=== PATIENT | female | born 1935 | race Caucasian/White ===

== ENCOUNTER 2020-07-14 10:48 | Outpatient (CLI) | payer MEDICARE, OTHER | END 2020-07-14 10:49 | disposition EMS.NT | LOC: EMS 10:48 | DX: Z03.89 Encounter for observation for other suspected diseases and conditions ruled out (principal) ==

== ENCOUNTER 2021-11-09 08:33 | Emergency (ER) | payer MEDICARE, OTHER ==
[2021-11-09] MEDS ORDERED: SODIUM CHLORIDE 0.9% 1,000 ML IV STA ×2 (08:50→10:21)
--- OUTSIDE RECORDS SUMMARY | 2021-11-09 08:50 | EXTERNAL MEDICAL SUMMARY RPT | Continuity of Care Document ---
:1935 Author Organization [facility] Address [address] [place] [address] Phone Allergies and Intolerances date description facility type (no date) [facility] (unknown) Encounters No information. Functional Status No information. Immunizations No information. Medications date description facility [id number] Omeprazole 20 MG Enteric Coated Capsul e [facility] Problems No information. Procedures date description facility + Diagnosis [facility] +0000 [facility] [id number] [facility] +0000 [facility] Results/Labs test date author facility value unit interpret ation Result panel 1 (unknown) (no (unknown) (unknown) (no value) (units (unk nown) date) unknown) (unknown) (no (unknown) (unknown) (no value) (units (unk nown) date) unknown) (unknown) (no (unknown) (unknown) (no value) (units (unk nown) date) unknown) (unknown) (no (unknown) (unknown) 09/16/21 (units (unkno wn) date) unknown) (unknown) (no (unknown) (unknown) 13:58 (units (unkno wn) date) unknown) (unknown) (no (unknown) (unknown) [place] [address] (unit s (unknown) date) unknown) (unknown) (no (unknown) (unknown) BLISTERS (FROM TEGADERM ( units (unknown) date) MESH) unknown) (unknown) (no (unknown) (unknown) Draft (units (unkno wn) date) unknown) (unknown) (no (unknown) (unknown) Family Practice Office (u nits (unknown) date) Visit unknown) (unknown) (no (unknown) (unknown) [facility] (units (unknown) date) unknown) (unknown) (no (unknown) (unknown) Heart attack (units (u nknown) date) unknown) (unknown) (no (unknown) (unknown) LIGHTHEADED (units (un known) date) unknown) (unknown) (no (unknown) (unknown) Melanoma (units (unkno wn) date) unknown) (unknown) (no (unknown) (unknown) Pulmonary embolism (units (unknown) date) unknown) (unknown) (no (unknown) (unknown) (no value) (units (unk nown) date) unknown) (unknown) (no (unknown) (unknown) () (units (unk nown) date) unknown) (unknown) (no (unknown) (unknown) 09/16/21 (units (unkno wn) date) unknown) (unknown) (no (unknown) (unknown) [id number] (units (unkno wn) date) unknown) (unknown) (no (unknown) (unknown) Abnormal LFTs (units ( unknown) date) unknown) (unknown) (no (unknown) (unknown) Age/Sex: 86 / F Date of (units (unknown) date) Service: unknown) (unknown) (no (unknown) (unknown) Allergies (units (unkn own) date) unknown) (unknown) (no (unknown) (unknown) Anesthesia (units (unk nown) date) unknown) (unknown) (no (unknown) (unknown) Ankle pain, left (2009) ( units (unknown) date) unknown) (unknown) (no (unknown) (unknown) Anxiety (units (unkno wn) date) unknown) (unknown) (no (unknown) (unknown) Attending Dr: Sosa Calderón (uni ts (unknown) date) Sebastian CAMPBELL unknown) (unknown) (no (unknown) (unknown) BMI 39.6 (units (un known) date) unknown) (unknown) (no (unknown) (unknown) BP 136/84 (units (u nknown) date) unknown) (unknown) (no (unknown) (unknown) Bipolar disorder (units (unknown) date) unknown) (unknown) (no (unknown) (unknown) Blood Pressure Location ( units (unknown) date) Lt brachial unknown) (unknown) (no (unknown) (unknown) Bronchitis (units (unk nown) date) unknown) (unknown) (no (unknown) (unknown) Cataract (09/2013) (units (unknown) date) unknown) (unknown) (no (unknown) (unknown) Chicken pox (units (un known) date) unknown) (unknown) (no (unknown) (unknown) Chronic left shoulder pain (units (unknown) date) (06/27/17) unknown) (unknown) (no (unknown) (unknown) Chronic lumbar (units (unknown) date) radiculopathy (02/26/14) unkno wn) (unknown) (no (unknown) (unknown) : 1935 (units (unknown) date) Acct:[id number] unknown) (unknown) (no (unknown) (unknown) Daughter Depression (un its (unknown) date) unknown) (unknown) (no (unknown) (unknown) Dept at . (u nits (unknown) date) unknown) (unknown) (no (unknown) (unknown) Documented By: (units (unknown) date) Sosa Cortes MD unknown) 09/16/21 1358 (unknown) (no (unknown) (unknown) Dysphagia, pharyngeal (un its (unknown) date) phase unknown) (unknown) (no (unknown) (unknown) Episodic mood disorder (u nits (unknown) date) (03/08/17) unknown) (unknown) (no (unknown) (unknown) Essential tremor (units (unknown) date) (11/19/14) unknown) (unknown) (no (unknown) (unknown) Family History (Reviewed (units (unknown) date) 01/09/21 @ 17:39 by Nadine un known) JULIO Shelby) (unknown) (no (unknown) (unknown) Father Heart (units (unknown) date) disease unknown) (unknown) (no (unknown) (unknown) Foot pain (units (unkn own) date) unknown) (unknown) (no (unknown) (unknown) Foot pain, left (2009) (u nits (unknown) date) unknown) (unknown) (no (unknown) (unknown) GERD (gastroesophageal (u nits (unknown) date) reflux disease) unknown) (unknown) (no (unknown) (unknown) Grandfather (u nits (unknown) date) Dementia unknown) (unknown) (no (unknown) (unknown) Grandfather (u nits (unknown) date) Pneumonia unknown) (unknown) (no (unknown) (unknown) Grandmother (u nits (unknown) date) No problems noted. unknown) (unknown) (no (unknown) (unknown) Grandmother (u nits (unknown) date) Heart disease unknown) (unknown) (no (unknown) (unknown) H/O abdominal surgery (un its (unknown) date) (09/2006) unknown) (unknown) (no (unknown) (unknown) Height 5 ft 7.5 in (un its (unknown) date) unknown) (unknown) (no (unknown) (unknown) History of (units (unk nown) date) esophagogastroduodenoscopy unk nown) (EGD) (-09/2015) (unknown) (no (unknown) (unknown) History of hip replacement (units (unknown) date) (1996) unknown) (unknown) (no (unknown) (unknown) History of hip replacement (units (unknown) date) (2001) unknown) (unknown) (no (unknown) (unknown) History of partial knee ( units (unknown) date) replacement (2003) unknown) (unknown) (no (unknown) (unknown) History of partial knee ( units (unknown) date) replacement (2007) unknown) (unknown) (no (unknown) (unknown) History of vaginal surgery (units (unknown) date) () unknown) (unknown) (no (unknown) (unknown) Hyperlipidemia (units (unknown) date) unknown) (unknown) (no (unknown) (unknown) Hypothyroidism (units (unknown) date) unknown) (unknown) (no (unknown) (unknown) Intake (units (unkno wn) date) unknown) (unknown) (no (unknown) (unknown) Internal hemorrhoids (uni ts (unknown) date) () unknown) (unknown) (no (unknown) (unknown) Last Menstural Cycle + (u nits (unknown) date) Details unknown) (unknown) (no (unknown) (unknown) Left upper quadrant pain (units (unknown) date) unknown) (unknown) (no (unknown) (unknown) Loc: [facility] (units (unkno wn) date) unknown) (unknown) (no (unknown) (unknown) Lumbar spinal stenosis (u nits (unknown) date) unknown) (unknown) (no (unknown) (unknown) Medical History (Updated (units (unknown) date) 05/19/21 @ 10:12 by Cara alvarez known) DO Júnior) (unknown) (no (unknown) (unknown) Mother (units (unknown) date) Dementia unknown) (unknown) (no (unknown) (unknown) Mumps (1967) (units (u nknown) date) unknown) (unknown) (no (unknown) (unknown) Neuropathy (units (unk nown) date) unknown) (unknown) (no (unknown) (unknown) Obesity (BMI 30-39.9) (un its (unknown) date) unknown) (unknown) (no (unknown) (unknown) Other Menstrual Period: ( units (unknown) date) Surgical Menopause (at age unk nown) 32) (unknown) (no (unknown) (unknown) Oxygen Delivery Method (u nits (unknown) date) room air unknown) (unknown) (no (unknown) (unknown) PFSH (units (unkno wn) date) unknown) (unknown) (no (unknown) (unknown) Patient: Isaura Schafer ( units (unknown) date) MR#: [id number] unknown) (unknown) (no (unknown) (unknown) Position Sitting (unit s (unknown) date) unknown) (unknown) (no (unknown) (unknown) Pulmonary nodule less than (units (unknown) date) 6 mm in diameter with low unkn own) risk for malignant neoplasm (unknown) (no (unknown) (unknown) Pulse 91 H (units ( unknown) date) unknown) (unknown) (no (unknown) (unknown) Pulse Oximetry (%) 96 (units (unknown) date) unknown) (unknown) (no (unknown) (unknown) Pulse Source Monitor ( units (unknown) date) unknown) (unknown) (no (unknown) (unknown) Reason For Visit (units (unknown) date) unknown) (unknown) (no (unknown) (unknown) Relationship problem with (units (unknown) date) family member unknown) (unknown) (no (unknown) (unknown) Respiration 16 (units (unknown) date) unknown) (unknown) (no (unknown) (unknown) Restrictive lung disease (units (unknown) date) unknown) (unknown) (no (unknown) (unknown) Signed By: (units (unk nown) date) unknown) (unknown) (no (unknown) (unknown) Sister Cancer (units (unknown) date) unknown) (unknown) (no (unknown) (unknown) Smoking Status: Never (un its (unknown) date) smoker unknown) (unknown) (no (unknown) (unknown) Social History (units (unknown) date) unknown) (unknown) (no (unknown) (unknown) Soft tissue mass (units (unknown) date) unknown) (unknown) (no (unknown) (unknown) Status post hysterectomy (units (unknown) date) with oophorectomy (1970) unkno wn) (unknown) (no (unknown) (unknown) Stricture of esophagus (u nits (unknown) date) (01/09/15) unknown) (unknown) (no (unknown) (unknown) Surgical History (Reviewed (units (unknown) date) 01/09/21 @ 17:39 by Nadine un known) JULIO Shelby) (unknown) (no (unknown) (unknown) Temp 96.9 F L (units (unknown) date) unknown) (unknown) (no (unknown) (unknown) Temp Source Temporal ( units (unknown) date) Artery Scan unknown) (unknown) (no (unknown) (unknown) This note may have been ( units (unknown) date) all or partially generated unk nown) using voice recognition (unknown) (no (unknown) (unknown) Tinnitus (-2014) (units (unknown) date) unknown) (unknown) (no (unknown) (unknown) Tobacco + Substance Use ( units (unknown) date) unknown) (unknown) (no (unknown) (unknown) Tobacco Status (units (unknown) date) unknown) (unknown) (no (unknown) (unknown) Urge incontinence of urine (units (unknown) date) (11/14/14) unknown) (unknown) (no (unknown) (unknown) Urinary incontinence (uni ts (unknown) date) (2004) unknown) (unknown) (no (unknown) (unknown) Visit Reasons: (units (unknown) date) Consultation/ f/u chemo unknow n) *CALLED, NO MESSAGE* (unknown) (no (unknown) (unknown) Vitals (units (unkno wn) date) unknown) (unknown) (no (unknown) (unknown) Weight 257 lb (units (unknown) date) unknown) (unknown) (no (unknown) (unknown) alcohol intake: current ( units (unknown) date) unknown) (unknown) (no (unknown) (unknown) details: (un its (unknown) date) 01/22/2007 unknown) (unknown) (no (unknown) (unknown) digoxin [DIGOXIN] Allergy (units (unknown) date) (Mild, Verified 04/13/21 unkno wn) 15:08) (unknown) (no (unknown) (unknown) have occurred. If there (units (unknown) date) are any questions, please unkn own) contact the Medical Records (unknown) (no (unknown) (unknown) household members: none ( units (unknown) date) unknown) (unknown) (no (unknown) (unknown) housing: condominium (uni ts (unknown) date) unknown) (unknown) (no (unknown) (unknown) latex [LATEX] Allergy (un its (unknown) date) (Mild, Verified 04/13/21 unkno wn) 15:08) (unknown) (no (unknown) (unknown) lives independently: Yes (units (unknown) date) unknown) (unknown) (no (unknown) (unknown) marital status: ( units (unknown) date) unknown) (unknown) (no (unknown) (unknown) may occur. Occasional (u nits (unknown) date) wrong-word or 'sound-alike' un known) substitutions may have (unknown) (no (unknown) (unknown) number of children: 1 (un its (unknown) date) unknown) (unknown) (no (unknown) (unknown) occupational status: (uni ts (unknown) date) previously employed unknown) (unknown) (no (unknown) (unknown) occurred due to the (unit s (unknown) date) inherent limitations of unknow n) voice recognition software. Please (unknown) (no (unknown) (unknown) pets and animals: No (uni ts (unknown) date) unknown) (unknown) (no (unknown) (unknown) read the note carefully ( units (unknown) date) and recognize, using unknown) context, where these substitutions (unknown) (no (unknown) (unknown) silver Allergy (Mild, (un its (unknown) date) Verified 04/13/21 15:08) unkno wn) (unknown) (no (unknown) (unknown) software. 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 (unknown) (no (unknown) (unknown) substance use type: does (units (unknown) date) not use unknown) Result panel 2 (unknown) (no (unknown) (unknown) (no value) (units (unk nown) date) unknown) (unknown) (no (unknown) (unknown) (no value) (units (unk nown) date) unknown) (unknown) (no (unknown) (unknown) (no value) (units (unk nown) date) unknown) (unknown) (no (unknown) (unknown) 09/16/21 (units (unkno wn) date) unknown) (unknown) (no (unknown) (unknown) 13:58 (units (unkno wn) date) unknown) (unknown) (no (unknown) (unknown) [place] [id number] (unit s (unknown) date) unknown) (unknown) (no (unknown) (unknown) BLISTERS (FROM TEGADERM ( units (unknown) date) MESH) unknown) (unknown) (no (unknown) (unknown) Draft (units (unkno wn) date) unknown) (unknown) (no (unknown) (unknown) Family Practice Office (u nits (unknown) date) Visit unknown) (unknown) (no (unknown) (unknown) [facility] (units (unknown) date) unknown) (unknown) (no (unknown) (unknown) Heart attack (units (u nknown) date) unknown) (unknown) (no (unknown) (unknown) LIGHTHEADED (units (un known) date) unknown) (unknown) (no (unknown) (unknown) Melanoma (units (unkno wn) date) unknown) (unknown) (no (unknown) (unknown) Pulmonary embolism (units (unknown) date) unknown) (unknown) (no (unknown) (unknown) (no value) (units (unk nown) date) unknown) (unknown) (no (unknown) (unknown) () (units (unk nown) date) unknown) (unknown) (no (unknown) (unknown) 09/16/21 (units (unkno wn) date) unknown) (unknown) (no (unknown) (unknown) [id number] (units (unkno wn) date) unknown) (unknown) (no (unknown) (unknown) 86 yo female presents (un its (unknown) date) today for follow up unknown) radiation treatment provided at (unknown) (no (unknown) (unknown) Abnormal LFTs (units ( unknown) date) unknown) (unknown) (no (unknown) (unknown) Accompanied by: Self / (u nits (unknown) date) Same As Patient unknown) (unknown) (no (unknown) (unknown) Age/Sex: 86 / F Date of (units (unknown) date) Service: unknown) (unknown) (no (unknown) (unknown) Allergies (units (unkn own) date) unknown) (unknown) (no (unknown) (unknown) Anesthesia (units (unk nown) date) unknown) (unknown) (no (unknown) (unknown) Ankle pain, left (2009) ( units (unknown) date) unknown) (unknown) (no (unknown) (unknown) Anxiety (units (unkno wn) date) unknown) (unknown) (no (unknown) (unknown) Attending Dr: Sosa Calderón (uni ts (unknown) date) Sebastian CAMPBELL unknown) (unknown) (no (unknown) (unknown) BMI 39.6 (units (un known) date) unknown) (unknown) (no (unknown) (unknown) BP 136/84 (units (u nknown) date) unknown) (unknown) (no (unknown) (unknown) Bipolar disorder (units (unknown) date) unknown) (unknown) (no (unknown) (unknown) Blood Pressure Location ( units (unknown) date) Lt brachial unknown) (unknown) (no (unknown) (unknown) Bronchitis (units (unk nown) date) unknown) (unknown) (no (unknown) (unknown) Cataract (09/2013) (units (unknown) date) unknown) (unknown) (no (unknown) (unknown) Chicken pox (units (un known) date) unknown) (unknown) (no (unknown) (unknown) Chronic left shoulder pain (units (unknown) date) (06/27/17) unknown) (unknown) (no (unknown) (unknown) Chronic lumbar (units (unknown) date) radiculopathy (02/26/14) unkno wn) (unknown) (no (unknown) (unknown) : 1935 (units (unknown) date) Acct:[id number] unknown) (unknown) (no (unknown) (unknown) Daughter Depression (un its (unknown) date) unknown) (unknown) (no (unknown) (unknown) Dept at . (u nits (unknown) date) unknown) (unknown) (no (unknown) (unknown) Documented By: (units (unknown) date) Sosa Cortes MD unknown) 09/16/21 1358 (unknown) (no (unknown) (unknown) Dysphagia, pharyngeal (un its (unknown) date) phase unknown) (unknown) (no (unknown) (unknown) Episodic mood disorder (u nits (unknown) date) (03/08/17) unknown) (unknown) (no (unknown) (unknown) Essential tremor (units (unknown) date) (11/19/14) unknown) (unknown) (no (unknown) (unknown) Family History (Reviewed (units (unknown) date) 01/09/21 @ 17:39 by Nadine un known) JULIO Shelby) (unknown) (no (unknown) (unknown) Father Heart (units (unknown) date) disease unknown) (unknown) (no (unknown) (unknown) Foot pain (units (unkn own) date) unknown) (unknown) (no (unknown) (unknown) Foot pain, left (2009) (u nits (unknown) date) unknown) (unknown) (no (unknown) (unknown) GERD (gastroesophageal (u nits (unknown) date) reflux disease) unknown) (unknown) (no (unknown) (unknown) Grandfather (u nits (unknown) date) Dementia unknown) (unknown) (no (unknown) (unknown) Grandfather (u nits (unknown) date) Pneumonia unknown) (unknown) (no (unknown) (unknown) Grandmother (u nits (unknown) date) No problems noted. unknown) (unknown) (no (unknown) (unknown) Grandmother (u nits (unknown) date) Heart disease unknown) (unknown) (no (unknown) (unknown) H/O abdominal surgery (un its (unknown) date) (09/2006) unknown) (unknown) (no (unknown) (unknown) Height 5 ft 7.5 in (un its (unknown) date) unknown) (unknown) (no (unknown) (unknown) History of (units (unk nown) date) esophagogastroduodenoscopy unk nown) (EGD) (-09/2015) (unknown) (no (unknown) (unknown) History of hip replacement (units (unknown) date) (1996) unknown) (unknown) (no (unknown) (unknown) History of hip replacement (units (unknown) date) (2001) unknown) (unknown) (no (unknown) (unknown) History of partial knee ( units (unknown) date) replacement (2003) unknown) (unknown) (no (unknown) (unknown) History of partial knee ( units (unknown) date) replacement (2007) unknown) (unknown) (no (unknown) (unknown) History of vaginal surgery (units (unknown) date) () unknown) (unknown) (no (unknown) (unknown) Hyperlipidemia (units (unknown) date) unknown) (unknown) (no (unknown) (unknown) Hypothyroidism (units (unknown) date) unknown) (unknown) (no (unknown) (unknown) Intake (units (unkno wn) date) unknown) (unknown) (no (unknown) (unknown) Intake Note: (units (u nknown) date) unknown) (unknown) (no (unknown) (unknown) Intake performed by: (uni ts (unknown) date) Sade Avila unknown) (unknown) (no (unknown) (unknown) 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- Clincial Staff (u nits (unknown) date) unknown) (unknown) (no (unknown) (unknown) Internal hemorrhoids (uni ts (unknown) date) () unknown) (unknown) (no (unknown) (unknown) Last Menstural Cycle + (u nits (unknown) date) Details unknown) (unknown) (no (unknown) (unknown) Left upper quadrant pain (units (unknown) date) unknown) (unknown) (no (unknown) (unknown) Loc: [facility] (units (unkno wn) date) unknown) (unknown) (no (unknown) (unknown) Lumbar spinal stenosis (u nits (unknown) date) unknown) (unknown) (no (unknown) (unknown) Medical History (Updated (units (unknown) date) 05/19/21 @ 10:12 by Cara un known) DO Júnior) (unknown) (no (unknown) (unknown) Mother (units (unknown) date) Dementia unknown) (unknown) (no (unknown) (unknown) Mumps (1967) (units (u nknown) date) unknown) (unknown) (no (unknown) (unknown) Neuropathy (units (unk nown) date) unknown) (unknown) (no (unknown) (unknown) Obesity (BMI 30-39.9) (un its (unknown) date) unknown) (unknown) (no (unknown) (unknown) Other Menstrual Period: ( units (unknown) date) Surgical Menopause (at age unk nown) 32) (unknown) (no (unknown) (unknown) Oxygen Delivery Method (u nits (unknown) date) room air unknown) (unknown) (no (unknown) (unknown) PFSH (units (unkno wn) date) unknown) (unknown) (no (unknown) (unknown) Patient: Isaura Schafer ( units (unknown) date) MR#: [id number] unknown) (unknown) (no (unknown) (unknown) Position Sitting (unit s (unknown) date) unknown) (unknown) (no (unknown) (unknown) Pulmonary nodule less than (units (unknown) date) 6 mm in diameter with low unkn own) risk for malignant neoplasm (unknown) (no (unknown) (unknown) Pulse 91 H (units ( unknown) date) unknown) (unknown) (no (unknown) (unknown) Pulse Oximetry (%) 96 (units (unknown) date) unknown) (unknown) (no (unknown) (unknown) Pulse Source Monitor ( units (unknown) date) unknown) (unknown) (no (unknown) (unknown) Reason For Visit (units (unknown) date) unknown) (unknown) (no (unknown) (unknown) Relationship problem with (units (unknown) date) family member unknown) (unknown) (no (unknown) (unknown) Respiration 16 (units (unknown) date) unknown) (unknown) (no (unknown) (unknown) Restrictive lung disease (units (unknown) date) unknown) (unknown) (no (unknown) (unknown) [place] [facility] (unit s (unknown) date) [facility]. unknown) (unknown) (no (unknown) (unknown) Signed By: (units (unk nown) date) unknown) (unknown) (no (unknown) (unknown) Sister Cancer (units (unknown) date) unknown) (unknown) (no (unknown) (unknown) Smoking Status: Never (un its (unknown) date) smoker unknown) (unknown) (no (unknown) (unknown) Social History (units (unknown) date) unknown) (unknown) (no (unknown) (unknown) Soft tissue mass (units (unknown) date) unknown) (unknown) (no (unknown) (unknown) Status post hysterectomy (units (unknown) date) with oophorectomy (1970) unkno wn) (unknown) (no (unknown) (unknown) Stricture of esophagus (u nits (unknown) date) (01/09/15) unknown) (unknown) (no (unknown) (unknown) Surgical History (Reviewed (units (unknown) date) 01/09/21 @ 17:39 by Nadine un known) JULIO Shelby) (unknown) (no (unknown) (unknown) Temp 96.9 F L (units (unknown) date) unknown) (unknown) (no (unknown) (unknown) Temp Source Temporal ( units (unknown) date) Artery Scan unknown) (unknown) (no (unknown) (unknown) This note may have been ( units (unknown) date) all or partially generated unk nown) using voice recognition (unknown) (no (unknown) (unknown) Tinnitus (-2015) (units (unknown) date) unknown) (unknown) (no (unknown) (unknown) Tobacco + Substance Use ( units (unknown) date) unknown) (unknown) (no (unknown) (unknown) Tobacco Status (units (unknown) date) unknown) (unknown) (no (unknown) (unknown) Urge incontinence of urine (units (unknown) date) (11/14/14) unknown) (unknown) (no (unknown) (unknown) Urinary incontinence (uni ts (unknown) date) (2004) unknown) (unknown) (no (unknown) (unknown) Visit Reasons: (units (unknown) date) Consultation/ f/u chemo unknow n) *CALLED, NO MESSAGE* (unknown) (no (unknown) (unknown) Vitals (units (unkno wn) date) unknown) (unknown) (no (unknown) (unknown) Weight 257 lb (units (unknown) date) unknown) (unknown) (no (unknown) (unknown) Would like to discuss (un its (unknown) date) restarting gabapentin for unkn own) right forearm pain. (unknown) (no (unknown) (unknown) alcohol intake: current ( units (unknown) date) unknown) (unknown) (no (unknown) (unknown) details: (un its (unknown) date) 01/22/2007 unknown) (unknown) (no (unknown) (unknown) digoxin [DIGOXIN] Allergy (units (unknown) date) (Mild, Verified 04/13/21 unkno wn) 15:08) (unknown) (no (unknown) (unknown) have occurred. If there (units (unknown) date) are any questions, please unkn own) contact the Medical Records (unknown) (no (unknown) (unknown) household members: none ( units (unknown) date) unknown) (unknown) (no (unknown) (unknown) housing: condominium (uni ts (unknown) date) unknown) (unknown) (no (unknown) (unknown) latex [LATEX] Allergy (un its (unknown) date) (Mild, Verified 04/13/21 unkno wn) 15:08) (unknown) (no (unknown) (unknown) lives independently: Yes (units (unknown) date) unknown) (unknown) (no (unknown) (unknown) marital status: ( units (unknown) date) unknown) (unknown) (no (unknown) (unknown) may occur. Occasional (u nits (unknown) date) wrong-word or 'sound-alike' un known) substitutions may have (unknown) (no (unknown) (unknown) number of children: 1 (un its (unknown) date) unknown) (unknown) (no (unknown) (unknown) occupational status: (uni ts (unknown) date) previously employed unknown) (unknown) (no (unknown) (unknown) occurred due to the (unit s (unknown) date) inherent limitations of unknow n) voice recognition software. Please (unknown) (no (unknown) (unknown) pets and animals: No (uni ts (unknown) date) unknown) (unknown) (no (unknown) (unknown) read the note carefully ( units (unknown) date) and recognize, using unknown) context, where these substitutions (unknown) (no (unknown) (unknown) silver Allergy (Mild, (un its (unknown) date) Verified 04/13/21 15:08) unkno wn) (unknown) (no (unknown) (unknown) software. 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 (unknown) (no (unknown) (unknown) substance use type: does (units (unknown) date) not use unknown) Result panel 3 (unknown) (no (unknown) (unknown) (no value) (units (unk nown) date) unknown) (unknown) (no (unknown) (unknown) (no value) (units (unk nown) date) unknown) (unknown) (no (unknown) (unknown) (no value) (units (unk nown) date) unknown) (unknown) (no (unknown) (unknown) 09/16/21 (units (unkno wn) date) unknown) (unknown) (no (unknown) (unknown) 13:58 (units (unkno wn) date) unknown) (unknown) (no (unknown) (unknown) [place] [id number] (unit s (unknown) date) unknown) (unknown) (no (unknown) (unknown) BLISTERS (FROM TEGADERM ( units (unknown) date) MESH) unknown) (unknown) (no (unknown) (unknown) Draft (units (unkno wn) date) unknown) (unknown) (no (unknown) (unknown) Family Practice Office (u nits (unknown) date) Visit unknown) (unknown) (no (unknown) (unknown) [facility] (units (unknown) date) unknown) (unknown) (no (unknown) (unknown) Heart attack (units (u nknown) date) unknown) (unknown) (no (unknown) (unknown) LIGHTHEADED (units (un known) date) unknown) (unknown) (no (unknown) (unknown) Melanoma (units (unkno wn) date) unknown) (unknown) (no (unknown) (unknown) Pulmonary embolism (units (unknown) date) unknown) (unknown) (no (unknown) (unknown) (no value) (units (unk nown) date) unknown) (unknown) (no (unknown) (unknown) () (units (unk nown) date) unknown) (unknown) (no (unknown) (unknown) 09/16/21 (units (unkno wn) date) unknown) (unknown) (no (unknown) (unknown) [id number] (units (unkno wn) date) unknown) (unknown) (no (unknown) (unknown) 08/17 --medial aspect of R (units (unknown) date) forearm has a bruising, ? unkn own) related to pushing up from (unknown) (no (unknown) (unknown) 86 yo female presents (un its (unknown) date) today for follow up unknown) radiation treatment provided at (unknown) (no (unknown) (unknown) Abnormal LFTs (units ( unknown) date) unknown) (unknown) (no (unknown) (unknown) Accompanied by: Self / (u nits (unknown) date) Same As Patient unknown) (unknown) (no (unknown) (unknown) Age/Sex: 86 / F Date of (units (unknown) date) Service: unknown) (unknown) (no (unknown) (unknown) Allergies (units (unkn own) date) unknown) (unknown) (no (unknown) (unknown) Anesthesia (units (unk nown) date) unknown) (unknown) (no (unknown) (unknown) Ankle pain, left (2009) ( units (unknown) date) unknown) (unknown) (no (unknown) (unknown) Anxiety (units (unkno wn) date) unknown) (unknown) (no (unknown) (unknown) Attending Dr: Sosa Calderón (uni ts (unknown) date) Sebastian CAMPBELL unknown) (unknown) (no (unknown) (unknown) BMI 39.6 (units (un known) date) unknown) (unknown) (no (unknown) (unknown) BP 136/84 (units (u nknown) date) unknown) (unknown) (no (unknown) (unknown) Bipolar disorder (units (unknown) date) unknown) (unknown) (no (unknown) (unknown) Blood Pressure Location ( units (unknown) date) Lt brachial unknown) (unknown) (no (unknown) (unknown) Bronchitis (units (unk nown) date) unknown) (unknown) (no (unknown) (unknown) Cataract (09/2013) (units (unknown) date) unknown) (unknown) (no (unknown) (unknown) Chicken pox (units (un known) date) unknown) (unknown) (no (unknown) (unknown) Chronic left shoulder pain (units (unknown) date) (06/27/17) unknown) (unknown) (no (unknown) (unknown) Chronic lumbar (units (unknown) date) radiculopathy (02/26/14) unkno wn) (unknown) (no (unknown) (unknown) : 1935 (units (unknown) date) Acct:[id number] unknown) (unknown) (no (unknown) (unknown) Daughter Depression (un its (unknown) date) unknown) (unknown) (no (unknown) (unknown) Dept at . (u nits (unknown) date) unknown) (unknown) (no (unknown) (unknown) Details: (units (unkno wn) date) unknown) (unknown) (no (unknown) (unknown) Documented By: (units (unknown) date) Sosa Cortes MD unknown) 09/16/21 1358 (unknown) (no (unknown) (unknown) Dysphagia, pharyngeal (un its (unknown) date) phase unknown) (unknown) (no (unknown) (unknown) Episodic mood disorder (u nits (unknown) date) (03/08/17) unknown) (unknown) (no (unknown) (unknown) Essential tremor (units (unknown) date) (11/19/14) unknown) (unknown) (no (unknown) (unknown) Family History (Reviewed (units (unknown) date) 01/09/21 @ 17:39 by Nadine un known) JULIO Shelby) (unknown) (no (unknown) (unknown) Father Heart (units (unknown) date) disease unknown) (unknown) (no (unknown) (unknown) Foot pain (units (unkn own) date) unknown) (unknown) (no (unknown) (unknown) Foot pain, left (2009) (u nits (unknown) date) unknown) (unknown) (no (unknown) (unknown) GERD (gastroesophageal (u nits (unknown) date) reflux disease) unknown) (unknown) (no (unknown) (unknown) Grandfather (u nits (unknown) date) Dementia unknown) (unknown) (no (unknown) (unknown) Grandfather (u nits (unknown) date) Pneumonia unknown) (unknown) (no (unknown) (unknown) Grandmother (u nits (unknown) date) No problems noted. unknown) (unknown) (no (unknown) (unknown) Grandmother (u nits (unknown) date) Heart disease unknown) (unknown) (no (unknown) (unknown) H/O abdominal surgery (un its (unknown) date) (09/2006) unknown) (unknown) (no (unknown) (unknown) HPI (units (unkno wn) date) unknown) (unknown) (no (unknown) (unknown) Height 5 ft 7.5 in (un its (unknown) date) unknown) (unknown) (no (unknown) (unknown) History of (units (unk nown) date) esophagogastroduodenoscopy unk nown) (EGD) (-09/2015) (unknown) (no (unknown) (unknown) History of hip replacement (units (unknown) date) (1996) unknown) (unknown) (no (unknown) (unknown) History of hip replacement (units (unknown) date) (2001) unknown) (unknown) (no (unknown) (unknown) History of partial knee ( units (unknown) date) replacement (2004) unknown) (unknown) (no (unknown) (unknown) History of partial knee ( units (unknown) date) replacement (2007) unknown) (unknown) (no (unknown) (unknown) History of vaginal surgery (units (unknown) date) (-2008) unknown) (unknown) (no (unknown) (unknown) Hyperlipidemia (units (unknown) date) unknown) (unknown) (no (unknown) (unknown) Hypothyroidism (units (unknown) date) unknown) (unknown) (no (unknown) (unknown) Intake (units (unkno wn) date) unknown) (unknown) (no (unknown) (unknown) Intake Note: (units (u nknown) date) unknown) (unknown) (no (unknown) (unknown) Intake performed by: (uni ts (unknown) date) Sade Avila unknown) (unknown) (no (unknown) (unknown) Intake- Clincial Staff (u nits (unknown) date) unknown) (unknown) (no (unknown) (unknown) Internal hemorrhoids (uni ts (unknown) date) () unknown) (unknown) (no (unknown) (unknown) Last Menstural Cycle + (u nits (unknown) date) Details unknown) (unknown) (no (unknown) (unknown) Left upper quadrant pain (units (unknown) date) unknown) (unknown) (no (unknown) (unknown) Loc: [facility] (units (unkno wn) date) unknown) (unknown) (no (unknown) (unknown) Lumbar spinal stenosis (u nits (unknown) date) unknown) (unknown) (no (unknown) (unknown) Medical History (Updated (units (unknown) date) 05/19/21 @ 10:12 by Cara un known) DO Júnior) (unknown) (no (unknown) (unknown) Mother (units (unknown) date) Dementia unknown) (unknown) (no (unknown) (unknown) Mumps (1967) (units (u nknown) date) unknown) (unknown) (no (unknown) (unknown) Neuropathy (units (unk nown) date) unknown) (unknown) (no (unknown) (unknown) Obesity (BMI 30-39.9) (un its (unknown) date) unknown) (unknown) (no (unknown) (unknown) Other Menstrual Period: ( units (unknown) date) Surgical Menopause (at age unk nown) 32) (unknown) (no (unknown) (unknown) Oxygen Delivery Method (u nits (unknown) date) room air unknown) (unknown) (no (unknown) (unknown) PFSH (units (unkno wn) date) unknown) (unknown) (no (unknown) (unknown) Patient: Isaura Schafer ( units (unknown) date) MR#: [id number] unknown) (unknown) (no (unknown) (unknown) Position Sitting (unit s (unknown) date) unknown) (unknown) (no (unknown) (unknown) Possibly Tuesday after (un its (unknown) date) Father's Day unknown) (unknown) (no (unknown) (unknown) Pulmonary nodule less than (units (unknown) date) 6 mm in diameter with low unkn own) risk for malignant neoplasm (unknown) (no (unknown) (unknown) Pulse 91 H (units ( unknown) date) unknown) (unknown) (no (unknown) (unknown) Pulse Oximetry (%) 96 (units (unknown) date) unknown) (unknown) (no (unknown) (unknown) Pulse Source Monitor ( units (unknown) date) unknown) (unknown) (no (unknown) (unknown) R thigh (units (unkno wn) date) unknown) (unknown) (no (unknown) (unknown) Radiation therapy - 25 tx, (units (unknown) date) then 4 weeks of rest from unkn own) end of September then to [facility] (unknown) (no (unknown) (unknown) Reason For Visit (units (unknown) date) unknown) (unknown) (no (unknown) (unknown) Relationship problem with (units (unknown) date) family member unknown) (unknown) (no (unknown) (unknown) Respiration 16 (units (unknown) date) unknown) (unknown) (no (unknown) (unknown) Restrictive lung disease (units (unknown) date) unknown) (unknown) (no (unknown) (unknown) Right arm - ordered (unit s (unknown) date) powerlift chair on 07/30 unknow n) ($707) from [employer] and got chair on (unknown) (no (unknown) (unknown) [facility] (unit s (unknown) date) [facility]. unknown) (unknown) (no (unknown) (unknown) [employer] [place] (units (unknown) date) from [employer] right unkn own) [address] (unknown) (no (unknown) (unknown) Signed By: (units (unk nown) date) unknown) (unknown) (no (unknown) (unknown) Sister Cancer (units (unknown) date) unknown) (unknown) (no (unknown) (unknown) Smoking Status: Never (un its (unknown) date) smoker unknown) (unknown) (no (unknown) (unknown) Social History (units (unknown) date) unknown) (unknown) (no (unknown) (unknown) Soft tissue mass (units (unknown) date) unknown) (unknown) (no (unknown) (unknown) Status post hysterectomy (units (unknown) date) with oophorectomy (1970) unkno wn) (unknown) (no (unknown) (unknown) Stricture of esophagus (u nits (unknown) date) (01/09/15) unknown) (unknown) (no (unknown) (unknown) Surgical History (Reviewed (units (unknown) date) 01/09/21 @ 17:39 by Nadine un known) JULIO Shelby) (unknown) (no (unknown) (unknown) Temp 96.9 F L (units (unknown) date) unknown) (unknown) (no (unknown) (unknown) Temp Source Temporal ( units (unknown) date) Artery Scan unknown) (unknown) (no (unknown) (unknown) This note may have been ( units (unknown) date) all or partially generated unk nown) using voice recognition (unknown) (no (unknown) (unknown) Tinnitus (-2014) (units (unknown) date) unknown) (unknown) (no (unknown) (unknown) Tobacco + Substance Use ( units (unknown) date) unknown) (unknown) (no (unknown) (unknown) Tobacco Status (units (unknown) date) unknown) (unknown) (no (unknown) (unknown) Urge incontinence of urine (units (unknown) date) (11/14/14) unknown) (unknown) (no (unknown) (unknown) Urinary incontinence (uni ts (unknown) date) (2004) unknown) (unknown) (no (unknown) (unknown) Visit Reasons: (units (unknown) date) Consultation/ f/u chemo unknow n) *CALLED, NO MESSAGE* (unknown) (no (unknown) (unknown) Vitals (units (unkno wn) date) unknown) (unknown) (no (unknown) (unknown) Weight 257 lb (units (unknown) date) unknown) (unknown) (no (unknown) (unknown) Would like to discuss (un its (unknown) date) restarting gabapentin for unkn own) right forearm pain. (unknown) (no (unknown) (unknown) alcohol intake: current ( units (unknown) date) unknown) (unknown) (no (unknown) (unknown) chair, (units (unkno wn) date) unknown) (unknown) (no (unknown) (unknown) details: (un its (unknown) date) 01/22/2007 unknown) (unknown) (no (unknown) (unknown) digoxin [DIGOXIN] Allergy (units (unknown) date) (Mild, Verified 04/13/21 unkno wn) 15:08) (unknown) (no (unknown) (unknown) have occurred. If there (units (unknown) date) are any questions, please unkn own) contact the Medical Records (unknown) (no (unknown) (unknown) household members: none ( units (unknown) date) unknown) (unknown) (no (unknown) (unknown) housing: condominium (uni ts (unknown) date) unknown) (unknown) (no (unknown) (unknown) latex [LATEX] Allergy (un its (unknown) date) (Mild, Verified 04/13/21 unkno wn) 15:08) (unknown) (no (unknown) (unknown) lives independently: Yes (units (unknown) date) unknown) (unknown) (no (unknown) (unknown) marital status: ( units (unknown) date) unknown) (unknown) (no (unknown) (unknown) may occur. Occasional (u nits (unknown) date) wrong-word or 'sound-alike' un known) substitutions may have (unknown) (no (unknown) (unknown) number of children: 1 (un its (unknown) date) unknown) (unknown) (no (unknown) (unknown) occupational status: (uni ts (unknown) date) previously employed unknown) (unknown) (no (unknown) (unknown) occurred due to the (unit s (unknown) date) inherent limitations of unknow n) voice recognition software. Please (unknown) (no (unknown) (unknown) pets and animals: No (uni ts (unknown) date) unknown) (unknown) (no (unknown) (unknown) read the note carefully ( units (unknown) date) and recognize, using unknown) context, where these substitutions (unknown) (no (unknown) (unknown) silver Allergy (Mild, (un its (unknown) date) Verified 04/13/21 15:08) unkno wn) (unknown) (no (unknown) (unknown) software. 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 (unknown) (no (unknown) (unknown) specialty surgery (units (unknown) date) unknown) (unknown) (no (unknown) (unknown) substance use type: does (units (unknown) date) not use unknown) (unknown) (no (unknown) (unknown) town (units (unkno wn) date) unknown) Result panel 4 (unknown) (no (unknown) (unknown) (no value) (units (unk nown) date) unknown) (unknown) (no (unknown) (unknown) (no value) (units (unk nown) date) unknown) (unknown) (no (unknown) (unknown) (no value) (units (unk nown) date) unknown) (unknown) (no (unknown) (unknown) 09/16/21 (units (unkno wn) date) unknown) (unknown) (no (unknown) (unknown) 13:58 (units (unkno wn) date) unknown) (unknown) (no (unknown) (unknown) [place] [id number] (unit s (unknown) date) unknown) (unknown) (no (unknown) (unknown) BLISTERS (FROM TEGADERM ( units (unknown) date) MESH) unknown) (unknown) (no (unknown) (unknown) Draft (units (unkno wn) date) unknown) (unknown) (no (unknown) (unknown) Family Practice Office (u nits (unknown) date) Visit unknown) (unknown) (no (unknown) (unknown) [facility] (units (unknown) date) unknown) (unknown) (no (unknown) (unknown) Heart attack (units (u nknown) date) unknown) (unknown) (no (unknown) (unknown) LIGHTHEADED (units (un known) date) unknown) (unknown) (no (unknown) (unknown) Melanoma (units (unkno wn) date) unknown) (unknown) (no (unknown) (unknown) Pulmonary embolism (units (unknown) date) unknown) (unknown) (no (unknown) (unknown) (no value) (units (unk nown) date) unknown) (unknown) (no (unknown) (unknown) (-01/2020) (units (unk nown) date) unknown) (unknown) (no (unknown) (unknown) 09/16/21 (units (unkno wn) date) unknown) (unknown) (no (unknown) (unknown) [id number] (units (unkno wn) date) unknown) (unknown) (no (unknown) (unknown) 08/17 --medial aspect of R (units (unknown) date) forearm has a bruising, ? unkn own) related to pushing up from (unknown) (no (unknown) (unknown) 86 yo female presents (un its (unknown) date) today for follow up unknown) radiation treatment provided at (unknown) (no (unknown) (unknown) Abnormal LFTs (units ( unknown) date) unknown) (unknown) (no (unknown) (unknown) Accompanied by: Self / (u nits (unknown) date) Same As Patient unknown) (unknown) (no (unknown) (unknown) Age/Sex: 86 / F Date of (units (unknown) date) Service: unknown) (unknown) (no (unknown) (unknown) Allergies (units (unkn own) date) unknown) (unknown) (no (unknown) (unknown) Anesthesia (units (unk nown) date) unknown) (unknown) (no (unknown) (unknown) Ankle pain, left (2009) ( units (unknown) date) unknown) (unknown) (no (unknown) (unknown) Anxiety (units (unkno wn) date) unknown) (unknown) (no (unknown) (unknown) Attending Dr: Sosa Calderón (uni ts (unknown) date) Sebastian CAMPBELL unknown) (unknown) (no (unknown) (unknown) BMI 39.6 (units (un known) date) unknown) (unknown) (no (unknown) (unknown) BP 136/84 (units (u nknown) date) unknown) (unknown) (no (unknown) (unknown) Bipolar disorder (units (unknown) date) unknown) (unknown) (no (unknown) (unknown) Blood Pressure Location ( units (unknown) date) Lt brachial unknown) (unknown) (no (unknown) (unknown) Bronchitis (units (unk nown) date) unknown) (unknown) (no (unknown) (unknown) Cataract (09/2013) (units (unknown) date) unknown) (unknown) (no (unknown) (unknown) Chicken pox (units (un known) date) unknown) (unknown) (no (unknown) (unknown) Chronic left shoulder pain (units (unknown) date) (06/27/17) unknown) (unknown) (no (unknown) (unknown) Chronic lumbar (units (unknown) date) radiculopathy (02/26/14) unkno wn) (unknown) (no (unknown) (unknown) : 1935 (units (unknown) date) Acct:[id number] unknown) (unknown) (no (unknown) (unknown) Daughter Depression (un its (unknown) date) unknown) (unknown) (no (unknown) (unknown) Dept at . (u nits (unknown) date) unknown) (unknown) (no (unknown) (unknown) Details: (units (unkno wn) date) unknown) (unknown) (no (unknown) (unknown) Diclofenac on topical skin (units (unknown) date) unknown) (unknown) (no (unknown) (unknown) Documented By: (units (unknown) date) Sosa Cortes MD unknown) 09/16/21 1358 (unknown) (no (unknown) (unknown) Dysphagia, pharyngeal (un its (unknown) date) phase unknown) (unknown) (no (unknown) (unknown) Episodic mood disorder (u nits (unknown) date) (03/08/17) unknown) (unknown) (no (unknown) (unknown) Essential tremor (units (unknown) date) (11/19/14) unknown) (unknown) (no (unknown) (unknown) Family History (Reviewed (units (unknown) date) 01/09/21 @ 17:39 by Nadine un known) JULIO Shelby) (unknown) (no (unknown) (unknown) Family derm in [place] (units (unknown) date) 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 (unknown) (no (unknown) (unknown) Father Heart (units (unknown) date) disease unknown) (unknown) (no (unknown) (unknown) Foot pain (units (unkn own) date) unknown) (unknown) (no (unknown) (unknown) Foot pain, left (2009) (u nits (unknown) date) unknown) (unknown) (no (unknown) (unknown) GERD (gastroesophageal (u nits (unknown) date) reflux disease) unknown) (unknown) (no (unknown) (unknown) Grandfather (u nits (unknown) date) Dementia unknown) (unknown) (no (unknown) (unknown) Grandfather (u nits (unknown) date) Pneumonia unknown) (unknown) (no (unknown) (unknown) Grandmother (u nits (unknown) date) No problems noted. unknown) (unknown) (no (unknown) (unknown) Grandmother (u nits (unknown) date) Heart disease unknown) (unknown) (no (unknown) (unknown) H/O abdominal surgery (un its (unknown) date) (09/2006) unknown) (unknown) (no (unknown) (unknown) HPI (units (unkno wn) date) unknown) (unknown) (no (unknown) (unknown) Height 5 ft 7.5 in (un its (unknown) date) unknown) (unknown) (no (unknown) (unknown) History of (units (unk nown) date) esophagogastroduodenoscopy unk nown) (EGD) (-09/2015) (unknown) (no (unknown) (unknown) History of hip replacement (units (unknown) date) (1996) unknown) (unknown) (no (unknown) (unknown) History of hip replacement (units (unknown) date) (2001) unknown) (unknown) (no (unknown) (unknown) History of partial knee ( units (unknown) date) replacement (2004) unknown) (unknown) (no (unknown) (unknown) History of partial knee ( units (unknown) date) replacement (2007) unknown) (unknown) (no (unknown) (unknown) History of vaginal surgery (units (unknown) date) (-2008) unknown) (unknown) (no (unknown) (unknown) Hyperlipidemia (units (unknown) date) unknown) (unknown) (no (unknown) (unknown) Hypothyroidism (units (unknown) date) unknown) (unknown) (no (unknown) (unknown) Intake (units (unkno wn) date) unknown) (unknown) (no (unknown) (unknown) Intake Note: (units (u nknown) date) unknown) (unknown) (no (unknown) (unknown) Intake performed by: (uni ts (unknown) date) Sade Avila unknown) (unknown) (no (unknown) (unknown) Intake- Clincial Staff (u nits (unknown) date) unknown) (unknown) (no (unknown) (unknown) Internal hemorrhoids (uni ts (unknown) date) () unknown) (unknown) (no (unknown) (unknown) Last Menstural Cycle + (u nits (unknown) date) Details unknown) (unknown) (no (unknown) (unknown) Left upper quadrant pain (units (unknown) date) unknown) (unknown) (no (unknown) (unknown) Loc: [facility] (units (unkno wn) date) unknown) (unknown) (no (unknown) (unknown) Lumbar spinal stenosis (u nits (unknown) date) unknown) (unknown) (no (unknown) (unknown) Medical History (Updated (units (unknown) date) 05/19/21 @ 10:12 by Cara alvarez known) DO Júnior) (unknown) (no (unknown) (unknown) Mother (units (unknown) date) Dementia unknown) (unknown) (no (unknown) (unknown) Mumps (1967) (units (u nknown) date) unknown) (unknown) (no (unknown) (unknown) Needs EMG sent to [place] (units (unknown) date) Neuropathy - bilat EMG, Dr. alvarez known) [place] (unknown) (no (unknown) (unknown) Neuropathy (units (unk nown) date) unknown) (unknown) (no (unknown) (unknown) Obesity (BMI 30-39.9) (un its (unknown) date) unknown) (unknown) (no (unknown) (unknown) Other Menstrual Period: ( units (unknown) date) Surgical Menopause (at age unk nown) 32) (unknown) (no (unknown) (unknown) Oxygen Delivery Method (u nits (unknown) date) room air unknown) (unknown) (no (unknown) (unknown) PFSH (units (unkno wn) date) unknown) (unknown) (no (unknown) (unknown) Patient: Isaura Schafer ( units (unknown) date) MR#: [id number] unknown) (unknown) (no (unknown) (unknown) Position Sitting (unit s (unknown) date) unknown) (unknown) (no (unknown) (unknown) Possibly Tuesday after (un its (unknown) date) Father's Day unknown) (unknown) (no (unknown) (unknown) Pulmonary nodule less than (units (unknown) date) 6 mm in diameter with low unkn own) risk for malignant neoplasm (unknown) (no (unknown) (unknown) Pulse 91 H (units ( unknown) date) unknown) (unknown) (no (unknown) (unknown) Pulse Oximetry (%) 96 (units (unknown) date) unknown) (unknown) (no (unknown) (unknown) Pulse Source Monitor ( units (unknown) date) unknown) (unknown) (no (unknown) (unknown) R thigh - presssure on RT (units (unknown) date) table unknown) (unknown) (no (unknown) (unknown) Radiation therapy - 25 tx, (units (unknown) date) then 4 weeks of rest from unkn own) end of September then to [facility]- (unknown) (no (unknown) (unknown) Reason For Visit (units (unknown) date) unknown) (unknown) (no (unknown) (unknown) Relationship problem with (units (unknown) date) family member unknown) (unknown) (no (unknown) (unknown) Respiration 16 (units (unknown) date) unknown) (unknown) (no (unknown) (unknown) Restrictive lung disease (units (unknown) date) unknown) (unknown) (no (unknown) (unknown) Right arm - ordered (unit s (unknown) date) powerlift chair on 07/30 unknow n) ($707) from [employer] and got chair on (unknown) (no (unknown) (unknown) [facility] (unit s (unknown) date) [facility]. unknown) (unknown) (no (unknown) (unknown) [employer] [place] (units (unknown) date) from [employer] right unkn own) [address] (unknown) (no (unknown) (unknown) Signed By: (units (unk nown) date) unknown) (unknown) (no (unknown) (unknown) Sister Cancer (units (unknown) date) unknown) (unknown) (no (unknown) (unknown) Smoking Status: Never (un its (unknown) date) smoker unknown) (unknown) (no (unknown) (unknown) Social History (units (unknown) date) unknown) (unknown) (no (unknown) (unknown) Soft tissue mass (units (unknown) date) unknown) (unknown) (no (unknown) (unknown) Status post hysterectomy (units (unknown) date) with oophorectomy (1970) unkno wn) (unknown) (no (unknown) (unknown) Stricture of esophagus (u nits (unknown) date) (01/09/15) unknown) (unknown) (no (unknown) (unknown) Surgical History (Reviewed (units (unknown) date) 01/09/21 @ 17:39 by Nadine un known) JULIO Shelby) (unknown) (no (unknown) (unknown) Temp 96.9 F L (units (unknown) date) unknown) (unknown) (no (unknown) (unknown) Temp Source Temporal ( units (unknown) date)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 replacement (2007) unknown) (unknown) (no (unknown) (unknown) History of vaginal surgery (units (unknown) date) (-2008) unknown) (unknown) (no (unknown) (unknown) Hyperlipidemia (units (unknown) date) unknown) (unknown) (no (unknown) (unknown) Hypothyroidism (units (unknown) date) unknown) (unknown) (no (unknown) (unknown) Intake (units (unkno wn) date) unknown) (unknown) (no (unknown) (unknown) Intake Note: (units (u nknown) date) unknown) (unknown) (no (unknown) (unknown) Intake performed by: (saanm ts (unknown) date) Sade Avila unknown) (unknown) (no (unknown) (unknown) Intake- Clincial Staff (u nits (unknown) date) unknown) (unknown) (no (unknown) (unknown) Internal hemorrhoids (uni ts (unknown) date) () unknown) (unknown) (no (unknown) (unknown) Last Menstural Cycle + (u nits (unknown) date) Details unknown) (unknown) (no (unknown) (unknown) Left upper quadrant pain (units (unknown) date) unknown) (unknown) (no (unknown) (unknown) Loc: [facility] (units (unkno wn) date) unknown) (unknown) (no (unknown) (unknown) Lumbar spinal stenosis (u nits (unknown) date) unknown) (unknown) (no (unknown) (unknown) Medical History (Updated (units (unknown) date) 09/16/21 @ 14:53 by Sosa alvarezk nowyefri) MD Sebastian) (unknown) (no (unknown) (unknown) Mother (units (unknown) date) Dementia unknown) (unknown) (no (unknown) (unknown) Mumps (1967) (units (u nknown) date) unknown) (unknown) (no (unknown) (unknown) Needs Avistat shots in her (units (unknown) date) eyes (Dr. Verdugo, Dr. Edgar taylor nowyefri) who is her reegular (unknown) (no (unknown) (unknown) Needs EMG sent to [place] (units (unknown) date) Neuropathy - bilat EMG, Dr. alvarez known) Struck (unknown) (no (unknown) (unknown) Neuropathy (units (unk nown) date) unknown) (unknown) (no (unknown) (unknown) Obesity (BMI 30-39.9) (un its (unknown) date) unknown) (unknown) (no (unknown) (unknown) Other Menstrual Period: ( units (unknown) date) Surgical Menopause (at age unk nown) 32) (unknown) (no (unknown) (unknown) Oxygen Delivery Method (u nits (unknown) date) room air unknown) (unknown) (no (unknown) (unknown) PFSH (units (unkno wn) date) unknown) (unknown) (no (unknown) (unknown) Patient: Isaura Schafer ( units (unknown) date) MR#: [id number] unknown) (unknown) (no (unknown) (unknown) Plan (units (unkno wn) date) unknown) (unknown) (no (unknown) (unknown) Position Sitting (unit s (unknown) date) unknown) (unknown) (no (unknown) (unknown) Possibly Tuesday after (un its (unknown) date) Father's Day unknown) (unknown) (no (unknown) (unknown) Pulmonary nodule less than (units (unknown) date) 6 mm in diameter with low unkn own) risk for malignant neoplasm (unknown) (no (unknown) (unknown) Pulse 91 H (units ( unknown) date) unknown) (unknown) (no (unknown) (unknown) Pulse Oximetry (%) 96 (units (unknown) date) unknown) (unknown) (no (unknown) (unknown) Pulse Source Monitor ( units (unknown) date) unknown) (unknown) (no (unknown) (unknown) R thigh - presssure on RT (units (unknown) date) table unknown) (unknown) (no (unknown) (unknown) Radiation therapy - 25 tx, (units (unknown) date) then 4 weeks of rest from unkn own) end of September then to sub- (unknown) (no (unknown) (unknown) Reason For Visit (units (unknown) date) unknown) (unknown) (no (unknown) (unknown) Refer for bilat LE EMG (u nits (unknown) date) unknown) (unknown) (no (unknown) (unknown) Referral to Dr. Velez in (units (unknown) date) Neurology at [facility] unknown) (unknown) (no (unknown) (unknown) Refill lorazepam (units (unknown) date) unknown) (unknown) (no (unknown) (unknown) Relationship problem with (units (unknown) date) family member unknown) (unknown) (no (unknown) (unknown) Respiration 16 (units (unknown) date) unknown) (unknown) (no (unknown) (unknown) Restrictive lung disease (units (unknown) date) unknown) (unknown) (no (unknown) (unknown) Right arm - ordered (unit s (unknown) date) powerlift chair on 07/30 unknow n) ($707) from [employer] and got chair on (unknown) (no (unknown) (unknown) [facility] (unit s (unknown) date) [facility]. unknown) (unknown) (no (unknown) (unknown) [employer] Buttered Aloe (units (unknown) date) from [employer] [facility] right unkn own) [address] (unknown) (no (unknown) (unknown) Signed By: (units (unk nown) date) unknown) (unknown) (no (unknown) (unknown) Sister Cancer (units (unknown) date) unknown) (unknown) (no (unknown) (unknown) Smoking Status: Never (un its (unknown) date) smoker unknown) (unknown) (no (unknown) (unknown) Social History (units (unknown) date) unknown) (unknown) (no (unknown) (unknown) Soft tissue mass (units (unknown) date) unknown) (unknown) (no (unknown) (unknown) Status post hysterectomy (units (unknown) date) with oophorectomy (1970) unkno wn) (unknown) (no (unknown) (unknown) Stricture of esophagus (u nits (unknown) date) (01/09/15) unknown) (unknown) (no (unknown) (unknown) Surgical History (Reviewed (units (unknown) date) 01/09/21 @ 17:39 by Nadine un known) JULIO Shelby) (unknown) (no (unknown) (unknown) Temp 96.9 F L (units (unknown) date) unknown) (unknown) (no (unknown) (unknown) Temp Source Temporal ( units (unknown) date) Artery Scan unknown) (unknown) (no (unknown) (unknown) This note may have been ( units (unknown) date) all or partially generated unk nown) using voice recognition (unknown) (no (unknown) (unknown) Tinnitus (-2015) (units (unknown) date) unknown) (unknown) (no (unknown) (unknown) Tobacco + Substance Use ( units (unknown) date) unknown) (unknown) (no (unknown) (unknown) Tobacco Status (units (unknown) date) unknown) (unknown) (no (unknown) (unknown) Urge incontinence of urine (units (unknown) date) (11/14/14) unknown) (unknown) (no (unknown) (unknown) Urinary incontinence (uni ts (unknown) date) (2004) unknown) (unknown) (no (unknown) (unknown) Visit Reasons: (units (unknown) date) Consultation/ f/u chemo unknow n) *CALLED, NO MESSAGE* (unknown) (no (unknown) (unknown) Vitals (units (unkno wn) date) unknown) (unknown) (no (unknown) (unknown) Weight 257 lb (units (unknown) date) unknown) (unknown) (no (unknown) (unknown) Would like to discuss (un its (unknown) date) restarting gabapentin for unkn own) right forearm pain. (unknown) (no (unknown) (unknown) alcohol intake: current ( units (unknown) date) unknown) (unknown) (no (unknown) (unknown) cell carcinoma (units (unknown) date) unknown) (unknown) (no (unknown) (unknown) chair, (units (unkno wn) date) unknown) (unknown) (no (unknown) (unknown) details: (un its (unknown) date) 01/22/2007 unknown) (unknown) (no (unknown) (unknown) digoxin [DIGOXIN] Allergy (units (unknown) date) (Mild, Verified 04/13/21 unkno wn) 15:08) (unknown) (no (unknown) (unknown) doctor) (units (unkno wn) date) unknown) (unknown) (no (unknown) (unknown) f/u with me in 6 weeks - (units (unknown) date) she saw Dr. Moreno q 6 weeks unknow n) (unknown) (no (unknown) (unknown) have occurred. If there (units (unknown) date) are any questions, please unkn own) contact the Medical Records (unknown) (no (unknown) (unknown) household members: none ( units (unknown) date) unknown) (unknown) (no (unknown) (unknown) housing: condominium (uni ts (unknown) date) unknown) (unknown) (no (unknown) (unknown) latex [LATEX] Allergy (un its (unknown) date) (Mild, Verified 04/13/21 unkno wn) 15:08) (unknown) (no (unknown) (unknown) lives independently: Yes (units (unknown) date) unknown) (unknown) (no (unknown) (unknown) marital status: ( units (unknown) date) unknown) (unknown) (no (unknown) (unknown) may occur. Occasional (u nits (unknown) date) wrong-word or 'sound-alike' un known) substitutions may have (unknown) (no (unknown) (unknown) number of children: 1 (un its (unknown) date) unknown) (unknown) (no (unknown) (unknown) occupational status: (uni ts (unknown) date) previously employed unknown) (unknown) (no (unknown) (unknown) occurred due to the (unit s (unknown) date) inherent limitations of unknow n) voice recognition software. Please (unknown) (no (unknown) (unknown) pets and animals: No (uni ts (unknown) date) unknown) (unknown) (no (unknown) (unknown) read the note carefully ( units (unknown) date) and recognize, using unknown) context, where these substitutions (unknown) (no (unknown) (unknown) silver Allergy (Mild, (un its (unknown) date) Verified 04/13/21 15:08) unkno wn) (unknown) (no (unknown) (unknown) software. 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 (unknown) (no (unknown) (unknown) specialty surgery (units (unknown) date) unknown) (unknown) (no (unknown) (unknown) substance use type: does (units (unknown) date) not use unknown) (unknown) (no (unknown) (unknown) town (units (unkno wn) date) unknown) Result panel 7 (unknown) (no (unknown) (unknown) (no value) (units (unk nown) date) unknown) (unknown) (no (unknown) (unknown) Status: Acute (units ( unknown) date) unknown) (unknown) (no (unknown) (unknown) (no value) (units (unk nown) date) unknown) (unknown) (no (unknown) (unknown) (no value) (units (unk nown) date) unknown) (unknown) (no (unknown) (unknown) 09/16/21 (units (unkno wn) date) unknown) (unknown) (no (unknown) (unknown) 13:58 (units (unkno wn) date) unknown) (unknown) (no (unknown) (unknown) [place] [id number] (unit s (unknown) date) unknown) (unknown) (no (unknown) (unknown) BLISTERS (FROM TEGADERM ( units (unknown) date) MESH) unknown) (unknown) (no (unknown) (unknown) Draft (units (unkno wn) date) unknown) (unknown) (no (unknown) (unknown) Family Practice Office (u nits (unknown) date) Visit unknown) (unknown) (no (unknown) (unknown) [facility] (units (unknown) date) unknown) (unknown) (no (unknown) (unknown) Heart attack (units (u nknown) date) unknown) (unknown) (no (unknown) (unknown) LIGHTHEADED (units (un known) date) unknown) (unknown) (no (unknown) (unknown) Melanoma (units (unkno wn) date) unknown) (unknown) (no (unknown) (unknown) Pulmonary embolism (units (unknown) date) unknown) (unknown) (no (unknown) (unknown) Rash (units (unkno wn) date) unknown) (unknown) (no (unknown) (unknown) (no value) (units (unk nown) date) unknown) (unknown) (no (unknown) (unknown) () (units (unk nown) date) unknown) (unknown) (no (unknown) (unknown) (1) Neuropathy: (units (unknown) date) unknown) (unknown) (no (unknown) (unknown) (2) Allergy to sulfa (uni ts (unknown) date) drugs: unknown) (unknown) (no (unknown) (unknown) (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 unkn own) related to pushing up from (unknown) (no (unknown) (unknown) 86 yo female presents (un its (unknown) date) today for follow up unknown) radiation treatment provided at (unknown) (no (unknown) (unknown) Abnormal LFTs (units ( unknown) date) unknown) (unknown) (no (unknown) (unknown) Accompanied by: Self / (u nits (unknown) date) Same As Patient unknown) (unknown) (no (unknown) (unknown) Age/Sex: 86 / F Date of (units (unknown) date) Service: unknown) (unknown) (no (unknown) (unknown) Allergies (units (unkn own) date) unknown) (unknown) (no (unknown) (unknown) Anesthesia (units (unk nown) date) unknown) (unknown) (no (unknown) (unknown) Ankle pain, left (2009) ( units (unknown) date) unknown) (unknown) (no (unknown) (unknown) Anxiety (units (unkno wn) date) unknown) (unknown) (no (unknown) (unknown) Assessment + Plan (units (unknown) date) unknown) (unknown) (no (unknown) (unknown) Attending Dr: Sosa Calderón (uni ts (unknown) date) Sebastian CAMPBELL unknown) (unknown) (no (unknown) (unknown) BMI 39.6 (units (un known) date) unknown) (unknown) (no (unknown) (unknown) BP 136/84 (units (u nknown) date) unknown) (unknown) (no (unknown) (unknown) Bipolar disorder (units (unknown) date) unknown) (unknown) (no (unknown) (unknown) Blood Pressure Location ( units (unknown) date) Lt brachial unknown) (unknown) (no (unknown) (unknown) Bronchitis (units (unk nown) date) unknown) (unknown) (no (unknown) (unknown) Cataract (09/2013) (units (unknown) date) unknown) (unknown) (no (unknown) (unknown) Chicken pox (units (un known) date) unknown) (unknown) (no (unknown) (unknown) Chief Complaint (units (unknown) date) unknown) (unknown) (no (unknown) (unknown) Chief Complaint: F/U on ( units (unknown) date) chemo from [facility] unknown) (unknown) (no (unknown) (unknown) Chronic left shoulder pain (units (unknown) date) (06/27/17) unknown) (unknown) (no (unknown) (unknown) Chronic lumbar (units (unknown) date) radiculopathy (02/26/14) unkno wn) (unknown) (no (unknown) (unknown) 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 (u nits (unknown) date) unknown) (unknown) (no (unknown) (unknown) Details: (units (unkno wn) date) unknown) (unknown) (no (unknown) (unknown) Diclofenac on topical skin (units (unknown) date) unknown) (unknown) (no (unknown) (unknown) Documented By: (units (unknown) date) Sosa Cortes MD unknown) 09/16/21 1358 (unknown) (no (unknown) (unknown) Dysphagia, pharyngeal (un its (unknown) date) phase unknown) (unknown) (no (unknown) (unknown) Episodic mood disorder (u nits (unknown) date) (03/08/17) unknown) (unknown) (no (unknown) (unknown) Essential tremor (units (unknown) date) (11/19/14) unknown) (unknown) (no (unknown) (unknown) Family History (Reviewed (units (unknown) date) 01/09/21 @ 17:39 by Nadine un known) JULIO Shelby) (unknown) (no (unknown) (unknown) Family derm in [place] (units (unknown) date) 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 (unknown) (no (unknown) (unknown) Father Heart (units (unknown) date) disease unknown) (unknown) (no (unknown) (unknown) Foot pain (units (unkn own) date) unknown) (unknown) (no (unknown) (unknown) Foot pain, left (2009) (u nits (unknown) date) unknown) (unknown) (no (unknown) (unknown) GERD (gastroesophageal (u nits (unknown) date) reflux disease) unknown) (unknown) (no (unknown) (unknown) Grandfather (u nits (unknown) date) Dementia unknown) (unknown) (no (unknown) (unknown) Grandfather (u nits (unknown) date) Pneumonia unknown) (unknown) (no (unknown) (unknown) Grandmother (u nits (unknown) date) No problems noted. unknown) (unknown) (no (unknown) (unknown) Grandmother (u nits (unknown) date) Heart disease unknown) (unknown) (no (unknown) (unknown) H/O abdominal surgery (un its (unknown) date) (09/2006) unknown) (unknown) (no (unknown) (unknown) HPI (units (unkno wn) date) unknown) (unknown) (no (unknown) (unknown) Height 5 ft 7.5 in (un its (unknown) date) unknown) (unknown) (no (unknown) (unknown) History of (units (unk nown) date) esophagogastroduodenoscopy unk nown) (EGD) (-09/2015) (unknown) (no (unknown) (unknown) History of hip replacement (units (unknown) date) (1996) unknown) (unknown) (no (unknown) (unknown) History of hip replacement (units (unknown) date) (2001) unknown) (unknown) (no (unknown) (unknown) History of partial knee ( units (unknown) date) replacement (2003) unknown) (unknown) (no (unknown) (unknown) History of partial knee ( units (unknown) date) replacement (2007) unknown) (unknown) (no (unknown) (unknown) History of vaginal surgery (units (unknown) date) (-2008) unknown) (unknown) (no (unknown) (unknown) Hyperlipidemia (units (unknown) date) unknown) (unknown) (no (unknown) (unknown) Hypothyroidism (units (unknown) date) unknown) (unknown) (no (unknown) (unknown) Intake (units (unkno wn) date) unknown) (unknown) (no (unknown) (unknown) Intake Note: (units (u nknown) date) unknown) (unknown) (no (unknown) (unknown) Intake performed by: (uni ts (unknown) date) AvilaSade unknown) (unknown) (no (unknown) (unknown) Intake- Clincial Staff (u nits (unknown) date) unknown) (unknown) (no (unknown) (unknown) Internal hemorrhoids (uni ts (unknown) date) () unknown) (unknown) (no (unknown) (unknown) Last Menstural Cycle + (u nits (unknown) date) Details unknown) (unknown) (no (unknown) (unknown) Left upper quadrant pain (units (unknown) date) unknown) (unknown) (no (unknown) (unknown) Loc: [facility] (units (unkno wn) date) unknown) (unknown) (no (unknown) (unknown) Lumbar spinal stenosis (u nits (unknown) date) unknown) (unknown) (no (unknown) (unknown) Isaura is an 86 yo lady (units (unknown) date) who 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 Verdugo, Dr. Edgar taylor nown) who is her reegular (unknown) (no (unknown) (unknown) Needs EMG sent to [place] (units (unknown) date) Neuropathy - bilat EMG, Dr. alvarez known) Struck (unknown) (no (unknown) (unknown) Neuropathy (units (unk nown) date) unknown) (unknown) (no (unknown) (unknown) Obesity (BMI 30-39.9) (un its (unknown) date) unknown) (unknown) (no (unknown) (unknown) Other Menstrual Period: ( units (unknown) date) Surgical Menopause (at age unk nown) 32) (unknown) (no (unknown) (unknown) Oxygen Delivery Method (u nits (unknown) date) room air unknown) (unknown) (no (unknown) (unknown) PFSH (units (unkno wn) date) unknown) (unknown) (no (unknown) (unknown) Patient: Isaura Schafer ( units (unknown) date) MR#: [id number] unknown) (unknown) (no (unknown) (unknown) Plan (units (unkno wn) date) unknown) (unknown) (no (unknown) (unknown) Position Sitting (unit s (unknown) date) unknown) (unknown) (no (unknown) (unknown) Possibly Tuesday after (un its (unknown) date) Father's Day unknown) (unknown) (no (unknown) (unknown) Pulmonary nodule less than (units (unknown) date) 6 mm in diameter with low unkn own) risk for malignant neoplasm (unknown) (no (unknown) (unknown) Pulse 91 H (units ( unknown) date) unknown) (unknown) (no (unknown) (unknown) Pulse Oximetry (%) 96 (units (unknown) date) unknown) (unknown) (no (unknown) (unknown) Pulse Source Monitor ( units (unknown) date) unknown) (unknown) (no (unknown) (unknown) R thigh - presssure on RT (units (unknown) date) table unknown) (unknown) (no (unknown) (unknown) Radiation therapy - 25 tx, (units (unknown) date) then 4 weeks of rest from unkn own) end of September then to sub- (unknown) (no (unknown) (unknown) Reason For Visit (units (unknown) date) unknown) (unknown) (no (unknown) (unknown) Refer for bilat LE EMG (u nits (unknown) date) unknown) (unknown) (no (unknown) (unknown) Referral to Dr. Velez in (units (unknown) date) Neurology at [facility] unknown) (unknown) (no (unknown) (unknown) Refill lorazepam (units (unknown) date) unknown) (unknown) (no (unknown) (unknown) Relationship problem with (units (unknown) date) family member unknown) (unknown) (no (unknown) (unknown) Respiration 16 (units (unknown) date) unknown) (unknown) (no (unknown) (unknown) Restrictive lung disease (units (unknown) date) unknown) (unknown) (no (unknown) (unknown) Right arm - ordered (unit s (unknown) date) powerlift chair on 07/30 unknow n) ($707) from [employer] and got chair on (unknown) (no (unknown) (unknown) [facility] (unit s (unknown) date) [facility]. unknown) (unknown) (no (unknown) (unknown) [employer] Crum Buttered Aloe (units (unknown) date) from [employer] right unkn own) [address] (unknown) (no (unknown) (unknown) Signed By: (units (unk nown) date) unknown) (unknown) (no (unknown) (unknown) Sister Cancer (units (unknown) date) unknown) (unknown) (no (unknown) (unknown) Smoking Status: Never (un its (unknown) date) smoker unknown) (unknown) (no (unknown) (unknown) Social History (units (unknown) date) unknown) (unknown) (no (unknown) (unknown) Soft tissue mass (units (unknown) date) unknown) (unknown) (no (unknown) (unknown) Status post hysterectomy (units (unknown) date) with oophorectomy (1969) unkno wn) (unknown) (no (unknown) (unknown) Stricture of esophagus (u nits (unknown) date) (01/09/15) unknown) (unknown) (no (unknown) (unknown) Surgical History (Reviewed (units (unknown) date) 01/09/21 @ 17:39 by Nadine un known) JULIO Shelby) (unknown) (no (unknown) (unknown) Temp 96.9 F L (units (unknown) date) unknown) (unknown) (no (unknown) (unknown) Temp Source Temporal ( units (unknown) date) Artery Scan unknown) (unknown) (no (unknown) (unknown) This note may have been ( units (unknown) date) all or partially generated unk nown) using voice recognition (unknown) (no (unknown) (unknown) Tinnitus (-2015) (units (unknown) date) unknown) (unknown) (no (unknown) (unknown) Tobacco + Substance Use ( units (unknown) date) unknown) (unknown) (no (unknown) (unknown) Tobacco Status (units (unknown) date) unknown) (unknown) (no (unknown) (unknown) Urge incontinence of urine (units (unknown) date) (11/14/14) unknown) (unknown) (no (unknown) (unknown) Urinary incontinence (uni ts (unknown) date) (2004) unknown) (unknown) (no (unknown) (unknown) Visit Reasons: (units (unknown) date) Consultation/ f/u chemo unknow n) *CALLED, NO MESSAGE* (unknown) (no (unknown) (unknown) Vitals (units (unkno wn) date) unknown) (unknown) (no (unknown) (unknown) Weight 257 lb (units (unknown) date) unknown) (unknown) (no (unknown) (unknown) Would like to discuss (un its (unknown) date) restarting gabapentin for unkn own) right forearm pain. (unknown) (no (unknown) (unknown) alcohol intake: current ( units (unknown) date) unknown) (unknown) (no (unknown) (unknown) at the time of excision of (units (unknown) date) what appeared to be a unknown) lipoma, though pathology proved (unknown) (no (unknown) (unknown) cell carcinoma (units (unknown) date) unknown) (unknown) (no (unknown) (unknown) chair, (units (unkno wn) date) unknown) (unknown) (no (unknown) (unknown) details: (un its (unknown) date) 01/22/2007 unknown) (unknown) (no (unknown) (unknown) digoxin [DIGOXIN] Allergy (units (unknown) date) (Mild, Verified 09/16/21 unkno wn) 14:57) (unknown) (no (unknown) (unknown) doctor) (units (unkno wn) date) unknown) (unknown) (no (unknown) (unknown) f/u with me in 6 weeks - (units (unknown) date) she saw Dr. Tiffanie benites 6 weeks unknow n) (unknown) (no (unknown) (unknown) have occurred. If there (units (unknown) date) are any questions, please unkn own) contact the Medical Records (unknown) (no (unknown) (unknown) household members: none ( units (unknown) date) unknown) (unknown) (no (unknown) (unknown) housing: condominium (uni ts (unknown) date) unknown) (unknown) (no (unknown) (unknown) latex [LATEX] Allergy (un its (unknown) date) (Mild, Verified 09/16/21 unkno wn) 14:57) (unknown) (no (unknown) (unknown) lives independently: Yes (units (unknown) date) unknown) (unknown) (no (unknown) (unknown) marital status: ( units (unknown) date) unknown) (unknown) (no (unknown) (unknown) may occur. Occasional (u nits (unknown) date) wrong-word or 'sound-alike' un known) substitutions may have (unknown) (no (unknown) (unknown) number of children: 1 (un its (unknown) date) unknown) (unknown) (no (unknown) (unknown) occupational status: (uni ts (unknown) date) previously employed unknown) (unknown) (no (unknown) (unknown) occurred due to the (unit s (unknown) date) inherent limitations of unknow n) voice recognition software. Please (unknown) (no (unknown) (unknown) otherwise. (units (unk nown) date) unknown) (unknown) (no (unknown) (unknown) pets and animals: No (uni ts (unknown) date) unknown) (unknown) (no (unknown) (unknown) read the note carefully ( units (unknown) date) and recognize, using unknown) context, where these substitutions (unknown) (no (unknown) (unknown) silver Allergy (Mild, (un its (unknown) date) Verified 09/16/21 14:57) unkno wn) (unknown) (no (unknown) (unknown) software. 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 (unknown) (no (unknown) (unknown) specialty surgery (units (unknown) date) unknown) (unknown) (no (unknown) (unknown) substance use type: does (units (unknown) date) not use unknown) (unknown) (no (unknown) (unknown) sulfamethoxazole [From (u nits (unknown) date) Bactrim] Allergy (Mild, unknow n) Verified 09/16/21 14:57) (unknown) (no (unknown) (unknown) town (units (unkno wn) date) unknown) (unknown) (no (unknown) (unknown) trimethoprim [From (units (unknown) date) Bactrim] Allergy (Mild, unknow n) Verified 09/16/21 14:57) Result panel 8 (unknown) (no (unknown) (unknown) (no value) (units (unk nown) date) unknown) (unknown) (no (unknown) (unknown) Status: Acute (units ( unknown) date) unknown) (unknown) (no (unknown) (unknown) (no value) (units (unk nown) date) unknown) (unknown) (no (unknown) (unknown) (no value) (units (unk nown) date) unknown) (unknown) (no (unknown) (unknown) 07/13/21 (units (unkno wn) date) unknown) (unknown) (no (unknown) (unknown) 09/28/21 1243 (units ( unknown) date) unknown) (unknown) (no (unknown) (unknown) 14:48 (units (unkno wn) date) unknown) (unknown) (no (unknown) (unknown) [place] [id number] (unit s (unknown) date) unknown) (unknown) (no (unknown) (unknown) BLISTERS (FROM TEGADERM ( units (unknown) date) MESH) unknown) (unknown) (no (unknown) (unknown) Family Practice Office (u nits (unknown) date) Visit unknown) (unknown) (no (unknown) (unknown) [facility] (units (unknown) date) unknown) (unknown) (no (unknown) (unknown) Heart attack (units (u nknown) date) unknown) (unknown) (no (unknown) (unknown) LIGHTHEADED (units (un known) date) unknown) (unknown) (no (unknown) (unknown) Melanoma (units (unkno wn) date) unknown) (unknown) (no (unknown) (unknown) Pulmonary embolism (units (unknown) date) unknown) (unknown) (no (unknown) (unknown) Rash (units (unkno wn) date) unknown) (unknown) (no (unknown) (unknown) Signed (units (unkno wn) date) unknown) (unknown) (no (unknown) (unknown) (no value) (units (unk nown) date) unknown) (unknown) (no (unknown) (unknown) () (units (unk nown) date) unknown) (unknown) (no (unknown) (unknown) (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 R arm bruise (units (unknown) date) unknown) (unknown) (no (unknown) (unknown) [id number] (units (unkno wn) date) unknown) (unknown) (no (unknown) (unknown) 3. Neurology consult on ( units (unknown) date) scheduled on 09/10 for unknown) neuropathic pain (unknown) (no (unknown) (unknown) 86 yo female presents (un its (unknown) date) today for f/u lipoma unknown) removal on lower back. (unknown) (no (unknown) (unknown) Abnormal LFTs (units ( unknown) date) unknown) (unknown) (no (unknown) (unknown) Accompanied by: Self / (u nits (unknown) date) Same As Patient unknown) (unknown) (no (unknown) (unknown) Age/Sex: 86 / F Date of (units (unknown) date) Service: unknown) (unknown) (no (unknown) (unknown) Allergies (units (unkn own) date) unknown) (unknown) (no (unknown) (unknown) Anesthesia (units (unk nown) date) unknown) (unknown) (no (unknown) (unknown) Ankle pain, left (2009) ( units (unknown) date) unknown) (unknown) (no (unknown) (unknown) Anxiety (units (unkno wn) date) unknown) (unknown) (no (unknown) (unknown) Assessment + Plan (units (unknown) date) unknown) (unknown) (no (unknown) (unknown) Attending Dr: Sosa Calderón (uni ts (unknown) date) Sebastian CAMPBELL unknown) (unknown) (no (unknown) (unknown) BMI 39.4 (units (un known) date) unknown) (unknown) (no (unknown) (unknown) BP 106/60 (units (u nknown) date) unknown) (unknown) (no (unknown) (unknown) Bipolar disorder (units (unknown) date) unknown) (unknown) (no (unknown) (unknown) Blood Pressure Location ( units (unknown) date) Lt brachial unknown) (unknown) (no (unknown) (unknown) Bronchitis (units (unk nown) date) unknown) (unknown) (no (unknown) (unknown) COPD, GERD, (units (un known) date) hyperlipidemia, bipolar unknow n) disorder and neuropathy who was recently (unknown) (no (unknown) (unknown) Cataract (09/2013) (units (unknown) date) unknown) (unknown) (no (unknown) (unknown) Chicken pox (units (un known) date) unknown) (unknown) (no (unknown) (unknown) Chief Complaint (units (unknown) date) unknown) (unknown) (no (unknown) (unknown) Chief Complaint: Spindle (units (unknown) date) cell path on lab report unknow n) (unknown) (no (unknown) (unknown) Chronic left shoulder pain (units (unknown) date) (06/27/17) unknown) (unknown) (no (unknown) (unknown) Chronic lumbar (units (unknown) date) radiculopathy (02/26/14) unkno wn) (unknown) (no (unknown) (unknown) : 1935 (units (unknown) date) Acct:[id number] unknown) (unknown) (no (unknown) (unknown) Daughter Depression (un its (unknown) date) unknown) (unknown) (no (unknown) (unknown) Dept at . (u nits (unknown) date) unknown) (unknown) (no (unknown) (unknown) Details: (units (unkno wn) date) unknown) (unknown) (no (unknown) (unknown) Documented By: (units (unknown) date) Sosa Cortes MD unknown) 07/13/21 1447 (unknown) (no (unknown) (unknown) Dx at the time of routine (units (unknown) date) excision by general surgery un known) of what seemed to be a (unknown) (no (unknown) (unknown) Dysphagia, pharyngeal (un its (unknown) date) phase unknown) (unknown) (no (unknown) (unknown) Episodic mood disorder (u nits (unknown) date) (03/08/17) unknown) (unknown) (no (unknown) (unknown) Essential tremor (units (unknown) date) (11/19/14) unknown) (unknown) (no (unknown) (unknown) Exam (units (unkno wn) date) unknown) (unknown) (no (unknown) (unknown) Exam Narrative (units (unknown) date) unknown) (unknown) (no (unknown) (unknown) Exam Narrative: (units (unknown) date) unknown) (unknown) (no (unknown) (unknown) Exam by observation (unit s (unknown) date) unknown) (unknown) (no (unknown) (unknown) Family History (Reviewed (units (unknown) date) 01/09/21 @ 17:39 by Nadine un known) JULIO Shelby) (unknown) (no (unknown) (unknown) Father Heart (units (unknown) date) disease unknown) (unknown) (no (unknown) (unknown) Foot pain (units (unkn own) date) unknown) (unknown) (no (unknown) (unknown) Foot pain, left (2009) (u nits (unknown) date) unknown) (unknown) (no (unknown) (unknown) GERD (gastroesophageal (u nits (unknown) date) reflux disease) unknown) (unknown) (no (unknown) (unknown) Gen - pleasant 86 yo (uni ts (unknown) date) female in NAD< seems to unknow n) give a coherent hx of what is a (unknown) (no (unknown) (unknown) [facility] (units (unknown) date) with on lipoma on July 30. un known) (unknown) (no (unknown) (unknown) Grandfather (u nits (unknown) date) Dementia unknown) (unknown) (no (unknown) (unknown) Grandfather (u nits (unknown) date) Pneumonia unknown) (unknown) (no (unknown) (unknown) Grandmother (u nits (unknown) date) No problems noted. unknown) (unknown) (no (unknown) (unknown) Grandmother (u nits (unknown) date) Heart disease unknown) (unknown) (no (unknown) (unknown) H/O abdominal surgery (un its (unknown) date) (09/2006) unknown) (unknown) (no (unknown) (unknown) HPI (units (unkno wn) date) unknown) (unknown) (no (unknown) (unknown) Height 5 ft 7.5 in (un its (unknown) date) unknown) (unknown) (no (unknown) (unknown) Her consult orders and (u nits (unknown) date) specialty appts are in unknown ) place (unknown) (no (unknown) (unknown) Her current prescriptions (units (unknown) date) are up todate unknown) (unknown) (no (unknown) (unknown) History of (units (unk nown) date) esophagogastroduodenoscopy unk nown) (EGD) (-09/2015) (unknown) (no (unknown) (unknown) History of hip replacement (units (unknown) date) (1996) unknown) (unknown) (no (unknown) (unknown) History of hip replacement (units (unknown) date) (2001) unknown) (unknown) (no (unknown) (unknown) History of partial knee ( units (unknown) date) replacement (2003) unknown) (unknown) (no (unknown) (unknown) History of partial knee ( units (unknown) date) replacement (2007) unknown) (unknown) (no (unknown) (unknown) History of vaginal surgery (units (unknown) date) (-2008) unknown) (unknown) (no (unknown) (unknown) Hyperlipidemia (units (unknown) date) unknown) (unknown) (no (unknown) (unknown) Hypothyroidism (units (unknown) date) unknown) (unknown) (no (unknown) (unknown) I sshall see her back as ( units (unknown) date) needed for any acute unknown) problems or status changes, or prn (unknown) (no (unknown) (unknown) Intake (units (unkno wn) date) unknown) (unknown) (no (unknown) (unknown) Intake Note: (units (u nknown) date) unknown) (unknown) (no (unknown) (unknown) Internal hemorrhoids (uni ts (unknown) date) () unknown) (unknown) (no (unknown) (unknown) Last Menstural Cycle + (u nits (unknown) date) Details unknown) (unknown) (no (unknown) (unknown) Left upper quadrant pain (units (unknown) date) unknown) (unknown) (no (unknown) (unknown) Loc: [facility] (units (unkno wn) date) unknown) (unknown) (no (unknown) (unknown) Lumbar spinal stenosis (u nits (unknown) date) unknown) (unknown) (no (unknown) (unknown) Isaura is an 86 yo lady (units (unknown) date) with a history of multiple unk nown) medical problems including (unknown) (no (unknown) (unknown) Medical History (Updated (units (unknown) date) 09/16/21 @ 14:53 by Sosa Calderón unk nown) MD Sebastian) (unknown) (no (unknown) (unknown) Mother (units (unknown) date) Dementia unknown) (unknown) (no (unknown) (unknown) [place] (1967) (units (u nknown) date) unknown) (unknown) (no (unknown) (unknown) Neuropathy (units (unk nown) date) unknown) (unknown) (no (unknown) (unknown) Obesity (BMI 30-39.9) (un its (unknown) date) unknown) (unknown) (no (unknown) (unknown) Other Menstrual Period: ( units (unknown) date) Surgical Menopause (at age unk nown) 32) (unknown) (no (unknown) (unknown) Oxygen Delivery Method (u nits (unknown) date) room air unknown) (unknown) (no (unknown) (unknown) PFSH (units (unkno wn) date) unknown) (unknown) (no (unknown) (unknown) Patient: Isaura Schafer ( units (unknown) date) MR#: [id number] unknown) (unknown) (no (unknown) (unknown) Plan (units (unkno wn) date) unknown) (unknown) (no (unknown) (unknown) Position Sitting (unit s (unknown) date) unknown) (unknown) (no (unknown) (unknown) Pulmonary nodule less than (units (unknown) date) 6 mm in diameter with low unkn own) risk for malignant neoplasm (unknown) (no (unknown) (unknown) Pulse 90 (units (un known) date) unknown) (unknown) (no (unknown) (unknown) Pulse Oximetry (%) 97 (units (unknown) date) unknown) (unknown) (no (unknown) (unknown) Pulse Source Monitor ( units (unknown) date) unknown) (unknown) (no (unknown) (unknown) ROS (units (unkno wn) date) unknown) (unknown) (no (unknown) (unknown) ROS Narrative (units ( unknown) date) unknown) (unknown) (no (unknown) (unknown) ROS Narrative: (units (unknown) date) unknown) (unknown) (no (unknown) (unknown) Reason For Visit (units (unknown) date) unknown) (unknown) (no (unknown) (unknown) Relationship problem with (units (unknown) date) family member unknown) (unknown) (no (unknown) (unknown) Respiration 16 (units (unknown) date) unknown) (unknown) (no (unknown) (unknown) Restrictive lung disease (units (unknown) date) unknown) (unknown) (no (unknown) (unknown) She has multiple chronic (units (unknown) date) problems, mostly under unknown ) adequate treatment while (unknown) (no (unknown) (unknown) Signed By: (units (unk nown) date) <Electronically signed by unkn own) Sosa Cortes MD> (unknown) (no (unknown) (unknown) Sister Cancer (units (unknown) date) unknown) (unknown) (no (unknown) (unknown) Smoking Status: Never (un its (unknown) date) smoker unknown) (unknown) (no (unknown) (unknown) Social History (units (unknown) date) unknown) (unknown) (no (unknown) (unknown) Soft tissue mass (units (unknown) date) unknown) (unknown) (no (unknown) (unknown) Status post hysterectomy (units (unknown) date) with oophorectomy (1969) unkno wn) (unknown) (no (unknown) (unknown) Stricture of esophagus (u nits (unknown) date) (01/09/15) unknown) (unknown) (no (unknown) (unknown) Surgical History (Reviewed (units (unknown) date) 01/09/21 @ 17:39 by Nadine un known) JULIO Shelby) (unknown) (no (unknown) (unknown) Temp 97.3 F L (units (unknown) date) unknown) (unknown) (no (unknown) (unknown) Temp Source Temporal ( units (unknown) date) Artery Scan unknown) (unknown) (no (unknown) (unknown) This note may have been ( units (unknown) date) all or partially generated unk nown) using voice recognition (unknown) (no (unknown) (unknown) Tinnitus (-2014) (units (unknown) date) unknown) (unknown) (no (unknown) (unknown) Tobacco + Substance Use ( units (unknown) date) unknown) (unknown) (no (unknown) (unknown) Tobacco Status (units (unknown) date) unknown) (unknown) (no (unknown) (unknown) Urge incontinence of urine (units (unknown) date) (11/14/14) unknown) (unknown) (no (unknown) (unknown) Urinary incontinence (uni ts (unknown) date) (2004) unknown) (unknown) (no (unknown) (unknown) Visit Reasons: Surgery F/U (units (unknown) date) *[place] pt unknown) (unknown) (no (unknown) (unknown) Vitals (units (unkno wn) date) unknown) (unknown) (no (unknown) (unknown) Weight 256 lb (units (unknown) date) unknown) (unknown) (no (unknown) (unknown) alcohol intake: current ( units (unknown) date) unknown) (unknown) (no (unknown) (unknown) also neuro consult for her (units (unknown) date) neuropathic pain. unknown) (unknown) (no (unknown) (unknown) as per HPI (units (unk nown) date) unknown) (unknown) (no (unknown) (unknown) attention is given to (un its (unknown) date) current most active issues unk nown) - her neoplastic lesions and (unknown) (no (unknown) (unknown) confusing problem (units (unknown) date) unknown) (unknown) (no (unknown) (unknown) details: (un its (unknown) date) 01/22/2007 unknown) (unknown) (no (unknown) (unknown) diagnosed with (units (unknown) date) unknown) (unknown) (no (unknown) (unknown) digoxin [DIGOXIN] Allergy (units (unknown) date) (Mild, Verified 09/16/21 unkno wn) 14:57) (unknown) (no (unknown) (unknown) have occurred. If there (units (unknown) date) are any questions, please unkn own) contact the Medical Records (unknown) (no (unknown) (unknown) household members: none ( units (unknown) date) unknown) (unknown) (no (unknown) (unknown) housing: condominium (uni ts (unknown) date) unknown) (unknown) (no (unknown) (unknown) latex [LATEX] Allergy (un its (unknown) date) (Mild, Verified 09/16/21 unkno wn) 14:57) (unknown) (no (unknown) (unknown) lipoma (units (unkno wn) date) unknown) (unknown) (no (unknown) (unknown) lives independently: Yes (units (unknown) date) unknown) (unknown) (no (unknown) (unknown) marital status: ( units (unknown) date) unknown) (unknown) (no (unknown) (unknown) may occur. Occasional (u nits (unknown) date) wrong-word or 'sound-alike' un known) substitutions may have (unknown) (no (unknown) (unknown) no noted trauma, has noted (units (unknown) date) tendency to bruise easily unkn own) (unknown) (no (unknown) (unknown) number of children: 1 (un its (unknown) date) unknown) (unknown) (no (unknown) (unknown) occupational status: (uni ts (unknown) date) previously employed unknown) (unknown) (no (unknown) (unknown) occurred due to the (unit s (unknown) date) inherent limitations of unknow n) voice recognition software. Please (unknown) (no (unknown) (unknown) pets and animals: No (uni ts (unknown) date) unknown) (unknown) (no (unknown) (unknown) read the note carefully ( units (unknown) date) and recognize, using unknown) context, where these substitutions (unknown) (no (unknown) (unknown) silver Allergy (Mild, (un its (unknown) date) Verified 09/16/21 14:57) unkno wn) (unknown) (no (unknown) (unknown) software. 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 (unknown) (no (unknown) (unknown) sub-specialty referral (u nits (unknown) date) back. unknown) (unknown) (no (unknown) (unknown) substance use type: does (units (unknown) date) not use unknown) (unknown) (no (unknown) (unknown) sulfamethoxazole [From (u nits (unknown) date) Bactrim] Allergy (Mild, unknow n) Verified 09/16/21 14:57) (unknown) (no (unknown) (unknown) trimethoprim [From (units (unknown) date) Bactrim] Allergy (Mild, unknow n) Verified 09/16/21 14:57) Result panel 9 (unknown) (no (unknown) (unknown) (no value) (units (unk nown) date) unknown) (unknown) (no (unknown) (unknown) Status: Acute (units ( unknown) date) unknown) (unknown) (no (unknown) (unknown) (no value) (units (unk nown) date) unknown) (unknown) (no (unknown) (unknown) (no value) (units (unk nown) date) unknown) (unknown) (no (unknown) (unknown) 09/16/21 (units (unkno wn) date) unknown) (unknown) (no (unknown) (unknown) 13:58 (units (unkno wn) date) unknown) (unknown) (no (unknown) (unknown) [place] [id number] (unit s (unknown) date) unknown) (unknown) (no (unknown) (unknown) BLISTERS (FROM TEGADERM ( units (unknown) date) MESH) unknown) (unknown) (no (unknown) (unknown) Draft (units (unkno wn) date) unknown) (unknown) (no (unknown) (unknown) Family Practice Office (u nits (unknown) date) Visit unknown) (unknown) (no (unknown) (unknown) [facility] (units (unknown) date) unknown) (unknown) (no (unknown) (unknown) Heart attack (units (u nknown) date) unknown) (unknown) (no (unknown) (unknown) LIGHTHEADED (units (un known) date) unknown) (unknown) (no (unknown) (unknown) Melanoma (units (unkno wn) date) unknown) (unknown) (no (unknown) (unknown) Pulmonary embolism (units (unknown) date) unknown) (unknown) (no (unknown) (unknown) Rash (units (unkno wn) date) unknown) (unknown) (no (unknown) (unknown) (no value) (units (unk nown) date) unknown) (unknown) (no (unknown) (unknown) () (units (unk nown) date) unknown) (unknown) (no (unknown) (unknown) (1) Neuropathy: (units (unknown) date) unknown) (unknown) (no (unknown) (unknown) (2) Allergy to sulfa (uni ts (unknown) date) drugs: unknown) (unknown) (no (unknown) (unknown) (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 Neuropathic pain (unit s (unknown) date) unknown) (unknown) (no (unknown) (unknown) [id number] (units (unkno wn) date) unknown) (unknown) (no (unknown) (unknown) 3. (units (unkno wn) date) unknown) (unknown) (no (unknown) (unknown) 08/17 --medial aspect of R (units (unknown) date) forearm has a bruising, ? unkn own) related to pushing up from (unknown) (no (unknown) (unknown) 86 yo female presents (un its (unknown) date) today for follow up unknown) radiation treatment provided at (unknown) (no (unknown) (unknown) Abnormal LFTs (units ( unknown) date) unknown) (unknown) (no (unknown) (unknown) Accompanied by: Self / (u nits (unknown) date) Same As Patient unknown) (unknown) (no (unknown) (unknown) Add'l Complaint: (units (unknown) date) unknown) (unknown) (no (unknown) (unknown) Age/Sex: 86 / F Date of (units (unknown) date) Service: unknown) (unknown) (no (unknown) (unknown) Allergies (units (unkn own) date) unknown) (unknown) (no (unknown) (unknown) Anesthesia (units (unk nown) date) unknown) (unknown) (no (unknown) (unknown) Ankle pain, left (2009) ( units (unknown) date) unknown) (unknown) (no (unknown) (unknown) Anxiety (units (unkno wn) date) unknown) (unknown) (no (unknown) (unknown) Assessment + Plan (units (unknown) date) unknown) (unknown) (no (unknown) (unknown) Attending Dr: Sosa Calderón (uni ts (unknown) date) Sebastian CAMPBELL unknown) (unknown) (no (unknown) (unknown) BMI 39.6 (units (un known) date) unknown) (unknown) (no (unknown) (unknown) BP 136/84 (units (u nknown) date) unknown) (unknown) (no (unknown) (unknown) Bipolar disorder (units (unknown) date) unknown) (unknown) (no (unknown) (unknown) Blood Pressure Location ( units (unknown) date) Lt brachial unknown) (unknown) (no (unknown) (unknown) Bronchitis (units (unk nown) date) unknown) (unknown) (no (unknown) (unknown) Cataract (09/2013) (units (unknown) date) unknown) (unknown) (no (unknown) (unknown) Chicken pox (units (un known) date) unknown) (unknown) (no (unknown) (unknown) Chief Complaint (units (unknown) date) unknown) (unknown) (no (unknown) (unknown) Chief Complaint: F/U on ( units (unknown) date) chemo from [facility] unknown) (unknown) (no (unknown) (unknown) Chronic left shoulder pain (units (unknown) date) (06/27/17) unknown) (unknown) (no (unknown) (unknown) Chronic lumbar (units (unknown) date) radiculopathy (02/26/14) unkno wn) (unknown) (no (unknown) (unknown) 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 (u nits (unknown) date) unknown) (unknown) (no (unknown) (unknown) Details: (units (unkno wn) date) unknown) (unknown) (no (unknown) (unknown) Diclofenac on topical skin (units (unknown) date) unknown) (unknown) (no (unknown) (unknown) Documented By: (units (unknown) date) Sosa Cortes MD unknown) 09/16/21 1358 (unknown) (no (unknown) (unknown) Dr. Vedrugo who works with (units (unknown) date) Dr. Hernández who is her unknown) regular doctor) (unknown) (no (unknown) (unknown) Dr. Velez, in advance of (units (unknown) date) visit so he can review at unkn own) the time of her visit. (unknown) (no (unknown) (unknown) Dysphagia, pharyngeal (un its (unknown) date) phase unknown) (unknown) (no (unknown) (unknown) Episodic mood disorder (u nits (unknown) date) (03/08/17) unknown) (unknown) (no (unknown) (unknown) Essential tremor (units (unknown) date) (11/19/14) unknown) (unknown) (no (unknown) (unknown) Family History (Reviewed (units (unknown) date) 01/09/21 @ 17:39 by Nadine un known) JULIO Shelby) (unknown) (no (unknown) (unknown) Family derm in [place] (units (unknown) date) 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 (unknown) (no (unknown) (unknown) Father Heart (units (unknown) date) disease unknown) (unknown) (no (unknown) (unknown) Foot pain (units (unkn own) date) unknown) (unknown) (no (unknown) (unknown) Foot pain, left (2009) (u nits (unknown) date) unknown) (unknown) (no (unknown) (unknown) GERD (gastroesophageal (u nits (unknown) date) reflux disease) unknown) (unknown) (no (unknown) (unknown) Grandfather (u nits (unknown) date) Dementia unknown) (unknown) (no (unknown) (unknown) Grandfather (u nits (unknown) date) Pneumonia unknown) (unknown) (no (unknown) (unknown) Grandmother (u nits (unknown) date) No problems noted. unknown) (unknown) (no (unknown) (unknown) Grandmother (u nits (unknown) date) Heart disease unknown) (unknown) (no (unknown) (unknown) H/O abdominal surgery (un its (unknown) date) (09/2006) unknown) (unknown) (no (unknown) (unknown) HPI (units (unkno wn) date) unknown) (unknown) (no (unknown) (unknown) Height 5 ft 7.5 in (un its (unknown) date) unknown) (unknown) (no (unknown) (unknown) History of (units (unk nown) date) esophagogastroduodenoscopy unk nown) (EGD) (-09/2015) (unknown) (no (unknown) (unknown) History of hip replacement (units (unknown) date) (1996) unknown) (unknown) (no (unknown) (unknown) History of hip replacement (units (unknown) date) (2001) unknown) (unknown) (no (unknown) (unknown) History of partial knee ( units (unknown) date) replacement (2003) unknown) (unknown) (no (unknown) (unknown) History of partial knee ( units (unknown) date) replacement (2007) unknown) (unknown) (no (unknown) (unknown) History of vaginal surgery (units (unknown) date) () unknown) (unknown) (no (unknown) (unknown) Hyperlipidemia (units (unknown) date) unknown) (unknown) (no (unknown) (unknown) Hypothyroidism (units (unknown) date) unknown) (unknown) (no (unknown) (unknown) Intake (units (unkno wn) date) unknown) (unknown) (no (unknown) (unknown) Intake Note: (units (u nknown) date) unknown) (unknown) (no (unknown) (unknown) Intake performed by: (uni ts (unknown) date) Sade Avila unknown) (unknown) (no (unknown) (unknown) Intake- Clincial Staff (u nits (unknown) date) unknown) (unknown) (no (unknown) (unknown) Internal hemorrhoids (uni ts (unknown) date) () unknown) (unknown) (no (unknown) (unknown) Last Menstural Cycle + (u nits (unknown) date) Details unknown) (unknown) (no (unknown) (unknown) Left upper quadrant pain (units (unknown) date) unknown) (unknown) (no (unknown) (unknown) Loc: [facility] (units (unkno wn) date) unknown) (unknown) (no (unknown) (unknown) Lumbar spinal stenosis (u nits (unknown) date) unknown) (unknown) (no (unknown) (unknown) Isaura is an 86 yo lady (units (unknown) date) who 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 (unknown) (no (unknown) (unknown) Medical History (Updated (units (unknown) date) 09/16/21 @ 14:53 by Sosa Calderón k nown) MD Sebastian) (unknown) (no (unknown) (unknown) Mother (units (unknown) date) Dementia unknown) (unknown) (no (unknown) (unknown) Mumps (1967) (units (u nknown) date) unknown) (unknown) (no (unknown) (unknown) Needs EMG order sent to ( units (unknown) date) [facility] - bilat unkn own) EMG ordered as requested by (unknown) (no (unknown) (unknown) Needs ongoing Avista shots (units (unknown) date) in her eyes and will unknown) continue those throughout (by (unknown) (no (unknown) (unknown) Neurology consult pending (units (unknown) date) unknown) (unknown) (no (unknown) (unknown) Neuropathy (units (unk nown) date) unknown) (unknown) (no (unknown) (unknown) Obesity (BMI 30-39.9) (un its (unknown) date) unknown) (unknown) (no (unknown) (unknown) Other Menstrual Period: ( units (unknown) date) Surgical Menopause (at age unk nown) 32) (unknown) (no (unknown) (unknown) Oxygen Delivery Method (u nits (unknown) date) room air unknown) (unknown) (no (unknown) (unknown) PFSH (units (unkno wn) date) unknown) (unknown) (no (unknown) (unknown) Patient: Isaura Schafer ( units (unknown) date) MR#: [id number] unknown) (unknown) (no (unknown) (unknown) Plan (units (unkno wn) date) unknown) (unknown) (no (unknown) (unknown) Position Sitting (unit s (unknown) date) unknown) (unknown) (no (unknown) (unknown) Possibly Tuesday after (un its (unknown) date) Father's Day unknown) (unknown) (no (unknown) (unknown) Pulmonary nodule less than (units (unknown) date) 6 mm in diameter with low unkn own) risk for malignant neoplasm (unknown) (no (unknown) (unknown) Pulse 91 H (units ( unknown) date) unknown) (unknown) (no (unknown) (unknown) Pulse Oximetry (%) 96 (units (unknown) date) unknown) (unknown) (no (unknown) (unknown) Pulse Source Monitor ( units (unknown) date) unknown) (unknown) (no (unknown) (unknown) R thigh - presssure on RT (units (unknown) date) table unknown) (unknown) (no (unknown) (unknown) Radiation therapy - 25 tx, (units (unknown) date) then 4 weeks of rest from unkn own) end of September then to sub- (unknown) (no (unknown) (unknown) Reason For Visit (units (unknown) date) unknown) (unknown) (no (unknown) (unknown) Refer for bilat LE EMG (u nits (unknown) date) unknown) (unknown) (no (unknown) (unknown) Referral to Dr. Velez in (units (unknown) date) Neurology at [facility] unknown) (unknown) (no (unknown) (unknown) Refill lorazepam (units (unknown) date) unknown) (unknown) (no (unknown) (unknown) Relationship problem with (units (unknown) date) family member unknown) (unknown) (no (unknown) (unknown) Respiration 16 (units (unknown) date) unknown) (unknown) (no (unknown) (unknown) Restrictive lung disease (units (unknown) date) unknown) (unknown) (no (unknown) (unknown) Right arm - ordered (unit s (unknown) date) powerlift chair on 07/30 unknow n) ($707) from [employer] and got chair on (unknown) (no (unknown) (unknown) [facility] [facility] (unit s (unknown) date) [facility]. unknown) (unknown) (no (unknown) (unknown) Alexa Crum Buttered Aloe (units (unknown) date) from [employer] right unkn own) [address] [place] (unknown) (no (unknown) (unknown) Signed By: (units (unk nown) date) unknown) (unknown) (no (unknown) (unknown) Sister Cancer (units (unknown) date) unknown) (unknown) (no (unknown) (unknown) Smoking Status: Never (un its (unknown) date) smoker unknown) (unknown) (no (unknown) (unknown) Social History (units (unknown) date) unknown) (unknown) (no (unknown) (unknown) Soft tissue mass (units (unknown) date) unknown) (unknown) (no (unknown) (unknown) Status post hysterectomy (units (unknown) date) with oophorectomy (1970) unkno wn) (unknown) (no (unknown) (unknown) Stricture of esophagus (u nits (unknown) date) (01/09/15) unknown) (unknown) (no (unknown) (unknown) Surgical History (Reviewed (units (unknown) date) 01/09/21 @ 17:39 by Nadine un known) JULIO Shelby) (unknown) (no (unknown) (unknown) Temp 96.9 F L (units (unknown) date) unknown) (unknown) (no (unknown) (unknown) Temp Source Temporal ( units (unknown) date) Artery Scan unknown) (unknown) (no (unknown) (unknown) This note may have been ( units (unknown) date) all or partially generated unk nown) using voice recognition (unknown) (no (unknown) (unknown) Tinnitus (-2015) (units (unknown) date) unknown) (unknown) (no (unknown) (unknown) Tobacco + Substance Use ( units (unknown) date) unknown) (unknown) (no (unknown) (unknown) Tobacco Status (units (unknown) date) unknown) (unknown) (no (unknown) (unknown) Urge incontinence of urine (units (unknown) date) (11/14/14) unknown) (unknown) (no (unknown) (unknown) Urinary incontinence (uni ts (unknown) date) (2004) unknown) (unknown) (no (unknown) (unknown) [facility] is (unit s (unknown) date) working well for her skin unkn own) care. (unknown) (no (unknown) (unknown) Visit Reasons: (units (unknown) date) Consultation/ f/u chemo unknow n) *CALLED, NO MESSAGE* (unknown) (no (unknown) (unknown) Vitals (units (unkno wn) date) unknown) (unknown) (no (unknown) (unknown) Weight 257 lb (units (unknown) date) unknown) (unknown) (no (unknown) (unknown) Would like to discuss (un its (unknown) date) restarting gabapentin for unkn own) right forearm pain. (unknown) (no (unknown) (unknown) alcohol intake: current ( units (unknown) date) unknown) (unknown) (no (unknown) (unknown) at the time of excision of (units (unknown) date) what appeared to be a unknown) lipoma, though pathology proved (unknown) (no (unknown) (unknown) cell carcinoma (units (unknown) date) unknown) (unknown) (no (unknown) (unknown) chair, (units (unkno wn) date) unknown) (unknown) (no (unknown) (unknown) details: (un its (unknown) date) 01/22/2007 unknown) (unknown) (no (unknown) (unknown) digoxin [DIGOXIN] Allergy (units (unknown) date) (Mild, Verified 09/16/21 unkno wn) 14:57) (unknown) (no (unknown) (unknown) f/u with me in 6 weeks - (units (unknown) date) she saw Dr. Moreno q 6 weeks unknow n) (unknown) (no (unknown) (unknown) have occurred. If there (units (unknown) date) are any questions, please unkn own) contact the Medical Records (unknown) (no (unknown) (unknown) household members: none ( units (unknown) date) unknown) (unknown) (no (unknown) (unknown) housing: condominium (uni ts (unknown) date) unknown) (unknown) (no (unknown) (unknown) latex [LATEX] Allergy (un its (unknown) date) (Mild, Verified 09/16/21 unkno wn) 14:57) (unknown) (no (unknown) (unknown) lives independently: Yes (units (unknown) date) unknown) (unknown) (no (unknown) (unknown) marital status: ( units (unknown) date) unknown) (unknown) (no (unknown) (unknown) may occur. Occasional (u nits (unknown) date) wrong-word or 'sound-alike' un known) substitutions may have (unknown) (no (unknown) (unknown) number of children: 1 (un its (unknown) date) unknown) (unknown) (no (unknown) (unknown) occupational status: (uni ts (unknown) date) previously employed unknown) (unknown) (no (unknown) (unknown) occurred due to the (unit s (unknown) date) inherent limitations of unknow n) voice recognition software. Please (unknown) (no (unknown) (unknown) otherwise. (units (unk nown) date) unknown) (unknown) (no (unknown) (unknown) pets and animals: No (uni ts (unknown) date) unknown) (unknown) (no (unknown) (unknown) protected in that regard. (units (unknown) date) unknown) (unknown) (no (unknown) (unknown) read the note carefully ( units (unknown) date) and recognize, using unknown) context, where these substitutions (unknown) (no (unknown) (unknown) silver Allergy (Mild, (un its (unknown) date) Verified 09/16/21 14:57) unkno wn) (unknown) (no (unknown) (unknown) software. 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 (unknown) (no (unknown) (unknown) specialty surgery (units (unknown) date) unknown) (unknown) (no (unknown) (unknown) substance use type: does (units (unknown) date) not use unknown) (unknown) (no (unknown) (unknown) sulfamethoxazole [From (u nits (unknown) date) Bactrim] Allergy (Mild, unknow n) Verified 09/16/21 14:57) (unknown) (no (unknown) (unknown) trimethoprim [From (units (unknown) date) Bactrim] Allergy (Mild, unknow n) Verified 09/16/21 14:57) Result panel 10 (unknown) (no (unknown) (unknown) (no value) (units (unk nown) date) unknown) (unknown) (no (unknown) (unknown) Status: Acute (units ( unknown) date) unknown) (unknown) (no (unknown) (unknown) (no value) (units (unk nown) date) unknown) (unknown) (no (unknown) (unknown) (no value) (units (unk nown) date) unknown) (unknown) (no (unknown) (unknown) 09/16/21 (units (unkno wn) date) unknown) (unknown) (no (unknown) (unknown) 09/28/21 1252 (units ( unknown) date) unknown) (unknown) (no (unknown) (unknown) 13:58 (units (unkno wn) date) unknown) (unknown) (no (unknown) (unknown) [place] [id number] (unit s (unknown) date) unknown) (unknown) (no (unknown) (unknown) BLISTERS (FROM TEGADERM ( units (unknown) date) MESH) unknown) (unknown) (no (unknown) (unknown) Family Practice Office (u nits (unknown) date) Visit unknown) (unknown) (no (unknown) (unknown) [facility] (units (unknown) date) unknown) (unknown) (no (unknown) (unknown) Heart attack (units (u nknown) date) unknown) (unknown) (no (unknown) (unknown) LIGHTHEADED (units (un known) date) unknown) (unknown) (no (unknown) (unknown) Melanoma (units (unkno wn) date) unknown) (unknown) (no (unknown) (unknown) Pulmonary embolism (units (unknown) date) unknown) (unknown) (no (unknown) (unknown) Rash (units (unkno wn) date) unknown) (unknown) (no (unknown) (unknown) Signed (units (unkno wn) date) unknown) (unknown) (no (unknown) (unknown) (no value) (units (unk nown) date) unknown) (unknown) (no (unknown) (unknown) () (units (unk nown) date) unknown) (unknown) (no (unknown) (unknown) (1) Neuropathy: (units (unknown) date) unknown) (unknown) (no (unknown) (unknown) (2) Allergy to sulfa (uni ts (unknown) date) drugs: unknown) (unknown) (no (unknown) (unknown) (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 Neuropathic pain (unit s (unknown) date) unknown) (unknown) (no (unknown) (unknown) [id number] (units (unkno wn) date) unknown) (unknown) (no (unknown) (unknown) 3. Macular degeneration ( units (unknown) date) (see Dr. Hernández's note of unkno wn) 07/02/21 (unknown) (no (unknown) (unknown) 4. Immunization status (u nits (unknown) date) unknown) (unknown) (no (unknown) (unknown) 08/17 --medial aspect of R (units (unknown) date) forearm has a bruising, ? unkn own) related to pushing up from (unknown) (no (unknown) (unknown) 86 yo female presents (un its (unknown) date) today for follow up unknown) radiation treatment provided at (unknown) (no (unknown) (unknown) Abnormal LFTs (units ( unknown) date) unknown) (unknown) (no (unknown) (unknown) Accompanied by: Self / (u nits (unknown) date) Same As Patient unknown) (unknown) (no (unknown) (unknown) Add'l Complaint: (units (unknown) date) unknown) (unknown) (no (unknown) (unknown) Age/Sex: 86 / F Date of (units (unknown) date) Service: unknown) (unknown) (no (unknown) (unknown) Allergies (units (unkn own) date) unknown) (unknown) (no (unknown) (unknown) Anesthesia (units (unk nown) date) unknown) (unknown) (no (unknown) (unknown) Ankle pain, left (2009) ( units (unknown) date) unknown) (unknown) (no (unknown) (unknown) Anxiety (units (unkno wn) date) unknown) (unknown) (no (unknown) (unknown) Assessment + Plan (units (unknown) date) unknown) (unknown) (no (unknown) (unknown) Attending Dr: Sosa Calderón (uni ts (unknown) date) Sebastian CAMPBELL unknown) (unknown) (no (unknown) (unknown) BMI 39.6 (units (un known) date) unknown) (unknown) (no (unknown) (unknown) BP 136/84 (units (u nknown) date) unknown) (unknown) (no (unknown) (unknown) Bipolar disorder (units (unknown) date) unknown) (unknown) (no (unknown) (unknown) Blood Pressure Location ( units (unknown) date) Lt brachial unknown) (unknown) (no (unknown) (unknown) Bronchitis (units (unk nown) date) unknown) (unknown) (no (unknown) (unknown) Cataract (09/2013) (units (unknown) date) unknown) (unknown) (no (unknown) (unknown) Chicken pox (units (un known) date) unknown) (unknown) (no (unknown) (unknown) Chief Complaint (units (unknown) date) unknown) (unknown) (no (unknown) (unknown) Chief Complaint: F/U on ( units (unknown) date) chemo from [facility] unknown) (unknown) (no (unknown) (unknown) Chronic left shoulder pain (units (unknown) date) (06/27/17) unknown) (unknown) (no (unknown) (unknown) Chronic lumbar (units (unknown) date) radiculopathy (02/26/14) unkno wn) (unknown) (no (unknown) (unknown) Continue tx for her (unit s (unknown) date) spindle cell carcinoma thru un known) [facility] (unknown) (no (unknown) (unknown) Covid booster done 4.28 at (units (unknown) date) [facility] in [place] so she un known) is up to date and (unknown) (no (unknown) (unknown) : 1935 (units (unknown) date) Acct:[id number] unknown) (unknown) (no (unknown) (unknown) Daughter Depression (un its (unknown) date) unknown) (unknown) (no (unknown) (unknown) Dept at . (u nits (unknown) date) unknown) (unknown) (no (unknown) (unknown) Details: (units (unkno wn) date) unknown) (unknown) (no (unknown) (unknown) Diclofenac on topical skin (units (unknown) date) unknown) (unknown) (no (unknown) (unknown) Documented By: (units (unknown) date) Sosa Cortes MD unknown) 09/16/21 1358 (unknown) (no (unknown) (unknown) Dr. Verdugo who works with (units (unknown) date) Dr. Hernández who is her unknown) regular doctor) (unknown) (no (unknown) (unknown) Dr. Velez, in advance of (units (unknown) date) visit so he can review at unkn own) the time of her visit. (unknown) (no (unknown) (unknown) Dysphagia, pharyngeal (un its (unknown) date) phase unknown) (unknown) (no (unknown) (unknown) Episodic mood disorder (u nits (unknown) date) (03/08/17) unknown) (unknown) (no (unknown) (unknown) Essential tremor (units (unknown) date) (11/19/14) unknown) (unknown) (no (unknown) (unknown) Family History (Reviewed (units (unknown) date) 01/09/21 @ 17:39 by Nadine un known) JULIO Shelby) (unknown) (no (unknown) (unknown) Family derm in [place] (units (unknown) date) 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 (unknown) (no (unknown) (unknown) Father Heart (units (unknown) date) disease unknown) (unknown) (no (unknown) (unknown) Foot pain (units (unkn own) date) unknown) (unknown) (no (unknown) (unknown) Foot pain, left (2009) (u nits (unknown) date) unknown) (unknown) (no (unknown) (unknown) GERD (gastroesophageal (u nits (unknown) date) reflux disease) unknown) (unknown) (no (unknown) (unknown) Grandfather (u nits (unknown) date) Dementia unknown) (unknown) (no (unknown) (unknown) Grandfather (u nits (unknown) date) Pneumonia unknown) (unknown) (no (unknown) (unknown) Grandmother (u nits (unknown) date) No problems noted. unknown) (unknown) (no (unknown) (unknown) Grandmother (u nits (unknown) date) Heart disease unknown) (unknown) (no (unknown) (unknown) H/O abdominal surgery (un its (unknown) date) (09/2006) unknown) (unknown) (no (unknown) (unknown) HPI (units (unkno wn) date) unknown) (unknown) (no (unknown) (unknown) Height 5 ft 7.5 in (un its (unknown) date) unknown) (unknown) (no (unknown) (unknown) History of (units (unk nown) date) esophagogastroduodenoscopy unk nown) (EGD) (-09/2015) (unknown) (no (unknown) (unknown) History of hip replacement (units (unknown) date) (1996) unknown) (unknown) (no (unknown) (unknown) History of hip replacement (units (unknown) date) (2001) unknown) (unknown) (no (unknown) (unknown) History of partial knee ( units (unknown) date) replacement (2003) unknown) (unknown) (no (unknown) (unknown) History of partial knee ( units (unknown) date) replacement (2007) unknown) (unknown) (no (unknown) (unknown) History of vaginal surgery (units (unknown) date) (-2008) unknown) (unknown) (no (unknown) (unknown) Hyperlipidemia (units (unknown) date) unknown) (unknown) (no (unknown) (unknown) Hypothyroidism (units (unknown) date) unknown) (unknown) (no (unknown) (unknown) Intake (units (unkno wn) date) unknown) (unknown) (no (unknown) (unknown) Intake Note: (units (u nknown) date) unknown) (unknown) (no (unknown) (unknown) Intake performed by: (uni ts (unknown) date) Sade Avila unknown) (unknown) (no (unknown) (unknown) Intake- Clincial Staff (u nits (unknown) date) unknown) (unknown) (no (unknown) (unknown) Internal hemorrhoids (uni ts (unknown) date) () unknown) (unknown) (no (unknown) (unknown) Last Menstural Cycle + (u nits (unknown) date) Details unknown) (unknown) (no (unknown) (unknown) Left upper quadrant pain (units (unknown) date) unknown) (unknown) (no (unknown) (unknown) Loc: [facility] (units (unkno wn) date) unknown) (unknown) (no (unknown) (unknown) Lumbar spinal stenosis (u nits (unknown) date) unknown) (unknown) (no (unknown) (unknown) Isaura is an 86 yo lady (units (unknown) date) who was recently diagnosed [place] nown) with spindle cell carcinoma (unknown) (no (unknown) (unknown) Medical History (Updated (units (unknown) date) 09/16/21 @ 14:53 by Sosa alvarezk nowyefri) MD Sebastian) (unknown) (no (unknown) (unknown) Mother (units (unknown) date) Dementia unknown) (unknown) (no (unknown) (unknown) Mumps (1967) (units (u nknown) date) unknown) (unknown) (no (unknown) (unknown) Needs EMG order sent to ( units (unknown) date) [facility] - bilat unkn own) EMG ordered as requested by (unknown) (no (unknown) (unknown) Needs ongoing Avista shots (units (unknown) date) in her eyes and will unknown) continue those throughout (by (unknown) (no (unknown) (unknown) Neurology consult pending (units (unknown) date) unknown) (unknown) (no (unknown) (unknown) Neuropathy (units (unk nown) date) unknown) (unknown) (no (unknown) (unknown) Obesity (BMI 30-39.9) (un its (unknown) date) unknown) (unknown) (no (unknown) (unknown) Other Menstrual Period: ( units (unknown) date) Surgical Menopause (at age unk nown) 32) (unknown) (no (unknown) (unknown) Oxygen Delivery Method (u nits (unknown) date) room air unknown) (unknown) (no (unknown) (unknown) PFSH (units (unkno wn) date) unknown) (unknown) (no (unknown) (unknown) Patient: Isaura Schafer ( units (unknown) date) MR#: [id number] unknown) (unknown) (no (unknown) (unknown) Plan (units (unkno wn) date) unknown) (unknown) (no (unknown) (unknown) Position Sitting (unit s (unknown) date) unknown) (unknown) (no (unknown) (unknown) Possibly Tuesday after (un its (unknown) date) Father's Day unknown) (unknown) (no (unknown) (unknown) Pulmonary nodule less than (units (unknown) date) 6 mm in diameter with low unkn own) risk for malignant neoplasm (unknown) (no (unknown) (unknown) Pulse 91 H (units ( unknown) date) unknown) (unknown) (no (unknown) (unknown) Pulse Oximetry (%) 96 (units (unknown) date) unknown) (unknown) (no (unknown) (unknown) Pulse Source Monitor ( units (unknown) date) unknown) (unknown) (no (unknown) (unknown) R thigh - presssure on RT (units (unknown) date) table unknown) (unknown) (no (unknown) (unknown) ROS (units (unkno wn) date) unknown) (unknown) (no (unknown) (unknown) ROS Narrative (units ( unknown) date) unknown) (unknown) (no (unknown) (unknown) ROS Narrative: (units (unknown) date) unknown) (unknown) (no (unknown) (unknown) Radiation therapy - 25 tx, (units (unknown) date) then 4 weeks of rest from unkn own) end of September then to [facility]- (unknown) (no (unknown) (unknown) Reason For Visit (units (unknown) date) unknown) (unknown) (no (unknown) (unknown) Refer for bilat LE EMG (u nits (unknown) date) unknown) (unknown) (no (unknown) (unknown) Referral to Dr. Velez in (units (unknown) date) Neurology at [facility] unknown) (unknown) (no (unknown) (unknown) Refill lorazepam for (uni ts (unknown) date) anxiety (she has CSA in unknow n) place and has used at length w/o (unknown) (no (unknown) (unknown) Relationship problem with (units (unknown) date) family member unknown) (unknown) (no (unknown) (unknown) Respiration 16 (units (unknown) date) unknown) (unknown) (no (unknown) (unknown) Restrictive lung disease (units (unknown) date) unknown) (unknown) (no (unknown) (unknown) Right arm - ordered (unit s (unknown) date) powerlift chair on 07/30 unknow n) ($707) from [employer] and got chair on (unknown) (no (unknown) (unknown) [place] [facility] (unit s (unknown) date) [facility]. unknown) (unknown) (no (unknown) (unknown) Alexa [employer]rum Buttered [employer]oe (units (unknown) date) from [employer] right unkn own) [address] [place] (unknown) (no (unknown) (unknown) Signed By: (units (unk nown) date) <Electronically signed by unkn own) Sosa Cortes MD> (unknown) (no (unknown) (unknown) Sister Cancer (units (unknown) date) unknown) (unknown) (no (unknown) (unknown) Smoking Status: Never (un its (unknown) date) smoker unknown) (unknown) (no (unknown) (unknown) Social History (units (unknown) date) unknown) (unknown) (no (unknown) (unknown) Soft tissue mass (units (unknown) date) unknown) (unknown) (no (unknown) (unknown) Status post hysterectomy (units (unknown) date) with oophorectomy (1970) unkno wn) (unknown) (no (unknown) (unknown) Stricture of esophagus (u nits (unknown) date) (01/09/15) unknown) (unknown) (no (unknown) (unknown) Surgical History (Reviewed (units (unknown) date) 01/09/21 @ 17:39 by Nadine un known) JULIO Shelby) (unknown) (no (unknown) (unknown) Temp 96.9 F L (units (unknown) date) unknown) (unknown) (no (unknown) (unknown) Temp Source Temporal ( units (unknown) date) Artery Scan unknown) (unknown) (no (unknown) (unknown) This note may have been ( units (unknown) date) all or partially generated unk nown) using voice recognition (unknown) (no (unknown) (unknown) Tinnitus (-2014) (units (unknown) date) unknown) (unknown) (no (unknown) (unknown) Tobacco + Substance Use ( units (unknown) date) unknown) (unknown) (no (unknown) (unknown) Tobacco Status (units (unknown) date) unknown) (unknown) (no (unknown) (unknown) Urge incontinence of urine (units (unknown) date) (11/14/14) unknown) (unknown) (no (unknown) (unknown) Urinary incontinence (uni ts (unknown) date) (2004) unknown) (unknown) (no (unknown) (unknown) [facility] is (unit s (unknown) date) working well for her skin unkn own) care. (unknown) (no (unknown) (unknown) Visit Reasons: (units (unknown) date) Consultation/ f/u chemo unknow n) *CALLED, NO MESSAGE* (unknown) (no (unknown) (unknown) Vitals (units (unkno wn) date) unknown) (unknown) (no (unknown) (unknown) Weight 257 lb (units (unknown) date) unknown) (unknown) (no (unknown) (unknown) Would like to discuss (un its (unknown) date) restarting gabapentin for unkn own) right forearm pain. 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 Callejas q 6 unknow n) weeks, and she does have a lot (unknown) (no (unknown) (unknown) going on (units (unkno wn) date) unknown) (unknown) (no (unknown) (unknown) have occurred. If there (units (unknown) date) are any questions, please unkn own) contact the Medical Records (unknown) (no (unknown) (unknown) household members: none ( units (unknown) date) unknown) (unknown) (no (unknown) (unknown) housing: condominium (uni ts (unknown) date) unknown) (unknown) (no (unknown) (unknown) latex [LATEX] Allergy (un its (unknown) date) (Mild, Verified 09/16/21 unkno wn) 14:57) (unknown) (no (unknown) (unknown) lives independently: Yes (units (unknown) date) unknown) (unknown) (no (unknown) (unknown) marital status: ( units (unknown) date) unknown) (unknown) (no (unknown) (unknown) may occur. Occasional (u nits (unknown) date) wrong-word or 'sound-alike' un known) substitutions may have (unknown) (no (unknown) (unknown) number of children: 1 (un its (unknown) date) unknown) (unknown) (no (unknown) (unknown) occupational status: (uni ts (unknown) date) previously employed unknown) (unknown) (no (unknown) (unknown) occurred due to the (unit s (unknown) date) inherent limitations of unknow n) voice recognition software. Please (unknown) (no (unknown) (unknown) otherwise. (units (unk nown) date) unknown) (unknown) (no (unknown) (unknown) pets and animals: No (uni ts (unknown) date) unknown) (unknown) (no (unknown) (unknown) problems) (units (unkn own) date) unknown) (unknown) (no (unknown) (unknown) protected in that regard. (units (unknown) date) unknown) (unknown) (no (unknown) (unknown) read the note carefully ( units (unknown) date) and recognize, using unknown) context, where these substitutions (unknown) (no (unknown) (unknown) silver Allergy (Mild, (un its (unknown) date) Verified 09/16/21 14:57) unkno wn) (unknown) (no (unknown) (unknown) software. 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 (unknown) (no (unknown) (unknown) specialty surgery (units (unknown) date) unknown) (unknown) (no (unknown) (unknown) substance use type: does (units (unknown) date) not use unknown) (unknown) (no (unknown) (unknown) sulfamethoxazole [From (u nits (unknown) date) Bactrim] Allergy (Mild, unknow n) Verified 09/16/21 14:57) (unknown) (no (unknown) (unknown) trimethoprim [From (units (unknown) date) Bactrim] Allergy (Mild, unknow n) Verified 09/16/21 14:57) Social History date description facility (no date) Never smoked tobacco ([facility] Vital Signs date measurement value units +0000 BMI BMI 39.6 kg/m2 [id number]+0000 BP_diastolic BP_diastolic 84 mm[H g] +0000 BP_systolic BP_systolic 136 mm[Hg] +0000 heart_rate heart_rate 91 /min +0000 height_metric height_metric 171.45 cm +0000 height_standard height_standard 67.5 in +0000 respiration_rate respiration_rate 16 /min +0000 temperature_metric temperature_metric 36.06 C +0000 temperature_standard temperature_standard 9 6.9 F +0000 weight_metric weight_metric 52.88 kg +0000 weight_standard weight_standard 116.57 lb
[2021-11-09 09:04] LABS: BASOPHILS # (AUTO) 0.1 10^3/uL (0.0-0.1); BASOPHILS % (AUTO) 0.4 %; EOSINOPHILS # (AUTO) 0.1 10^3/uL (0.0-0.7); EOSINOPHILS % (AUTO) 0.6 %; HCT - HEMATOCRIT 44.4 % (37.0-47.0); HGB - HEMOGLOBIN 14.6 g/dL (12.0-16.0); LYMPHOCYTES # (AUTO) 0.7 10^3/uL (1.5-3.5); LYMPHOCYTES % (AUTO) 4.6 %; MEAN CORPUSCULAR HEMOGLOBIN 29.7 pg (27.0-31.0); MEAN CORPUSCULAR HGB CONC 32.9 g/dL (32.0-36.0); MEAN CORPUSCULAR VOLUME 90.4 fL (81.0-99.0); MEAN PLATELET VOLUME 10.4 fL (7.9-10.8); MONOCYTES # (AUTO) 1.2 10^3/uL (0.0-1.0); MONOCYTES % (AUTO) 7.7 %; NEUTROPHILS # (AUTO) 13.7 10^3/uL (1.5-6.6); NEUTROPHILS % (AUTO) 86.1 %; PLT - PLATELET COUNT 265 10^3/uL (130-450); RED BLOOD COUNT 4.91 10^6/uL (4.20-5.40); RED CELL DISTRIBUTION WIDTH 13.1 % (12.0-15.0)
[2021-11-09 09:27] LABS: ALBUMIN 4.4 g/dL (3.2-5.5); ALBUMIN/GLOBULIN RATIO 1.6 (1.0-2.2); BILIRUBIN,TOTAL 0.9 mg/dL (0.2-1.0); CALCIUM 9.6 mg/dL (8.5-10.3); CREATININE 0.8 mg/dL (0.4-1.0); POTASSIUM 3.9 mmol/L (3.5-5.0); TOTAL PROTEIN 7.1 g/dL (6.7-8.2)
[2021-11-09] MEDS ORDERED: MIN OIL/DIMETHICON/COCONUT OIL 92 GM TUBE TOP STA (11:50)
[2021-11-09 14:04] LABS: GLUCOSE, URINE (UA) NEGATIVE (NEGATIVE); KETONES,URINE (UA) 15 mg/dL (NEGATIVE); LEUKOCYTE ESTERASE, URINE SMALL (NEGATIVE); NITRITE,URINE NEGATIVE (NEGATIVE); OCCULT BLOOD,URINE NEGATIVE (NEGATIVE); PROTEIN,URINE NEGATIVE (NEGATIVE); UROBILINOGEN,URINE 0.2 (NORMAL) E.U./dL (NORMAL)
[2021-11-09 14:05] LABS: CLARITY,URINE CLEAR (CLEAR)
[2021-11-09 14:08] LABS: BILIRUBIN,URINE NEGATIVE (NEGATIVE); ICTOTEST,URINE NEGATIVE
[2021-11-09] MEDS ORDERED: cefTRIAXone 1 GM VIAL IVP STA (14:30)
[2021-11-09 14:35] LABS: BACTERIA,URINE Few /HPF (None Seen); RBC,URINE 0-5 /HPF (0-5); SQUAMOUS EPITHELIAL CELL,UR FEW Squamous (<= Few)
[2021-11-09 14:36] LABS: MUCUS,URINE Moderate Strands
--- NOTE | 2021-11-09 14:38 | ED Physician Documentation ---
"History of Present Illness - Stated complaint Stated Complaint: GLF - Chief complaint Chief Complaint: General - History obtained from History obtained from: Patient - History of Present Illness Timing: How many days ago (2) - Additonal information Additional information: Patient is an 86-year-old female who presents to the emergency department after a ground-level fall at home 2 days ago. She states that she has been unable to get up off the ground until a neighbor came and helped her today. EMS was called and she is brought in for evaluation. Does not have any injuries. She states she feels tired and dehydrated. No headache. No neck or back pain. No leg pain, no hip pain. Review of Systems Ten Systems: 10 systems reviewed and negative Constitutional: denies: Fever, Chills Ears: denies: Ear pain Nose: denies: Rhinorrhea / runny nose, Congestion Cardiac: denies: Palpitations Respiratory: denies: Cough GI: denies: Abdominal Pain, Nausea, Vomiting, Diarrhea Skin: denies: Rash Musculoskeletal: denies: Neck pain, Back pain Neurologic: denies: Focal weakness, Numbness, Headache, Head injury PD PAST MEDICAL HISTORY - Past Medical History Past Medical History: Yes Cardiovascular: High cholesterol Respiratory: None Endocrine/Autoimmune: None Psych: Bipolar disorder Musculoskeletal: Osteoarthritis, Osteoporosis, Chronic back pain - Past Surgical History Ortho: Hip replacement, 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 - Present Medications Home Medications: Ambulatory Orders Medication Instructions Recorded Confirmed Albuterol Sulf [Ventolin Hfa 11/09/21 Inhaler] Aspirin [[place] Aspirin] 81 mg PO DAILY 11/09/21 11/09/21 Cefpodoxime Proxetil [Vantin] 100 mg PO Q12H #14 tablet 11/09/21 LORazepam [Ativan] 1 mg PO PRN 11/09/21 OLANZapine [Zyprexa] 2.5 11/09/21 Omeprazole Magnesium [Prilosec] 40 11/09/21 Sertraline [Zoloft] 100 mg PO HS 11/09/21 11/09/21 Simvastatin [Zocor] 40 mg PO HS 11/09/21 11/09/21 Tolterodine Tartrate [Detrol] 4 mg PO DAILY 11/09/21 11/09/21 - Allergies Allergies/Adverse Reactions: Allergies Allergy/AdvReac Type Severity Reaction Status Date / Time No Known Drug Allergies Allergy Verified 11/09/21 10:24 - Social History Does the pt smoke?: No Smoking Status: Never smoker PD ED PE NORMAL - Vitals Vital signs reviewed: Yes - General General: Alert and oriented X 3, No acute distress - HEENT HEENT: Atraumatic, PERRL, Other (Dry lips and tongue) - Neck Neck: Supple, no meningeal sign, No bony TTP - Cardiac Cardiac: RRR, Strong equal pulses - Respiratory Respiratory: No respiratory distress, Clear bilaterally - Abdomen Abdomen: Soft, Non tender, Non distended - Back Back: No spinal TTP - Derm Derm: Warm and dry, Other (Abrasion to the left elbow.) - Extremities Extremities: No deformity, No tenderness to palpate, Normal ROM s pain - Neuro Neuro: Alert and oriented X 3, self rising flour mixer 2-12 intact, No motor deficit, No sensory deficit, Normal speech Eye Opening: Spontaneous Motor: Obeys Commands Verbal: Oriented GCS Score: 15 - Psych Psych: Normal mood, Normal affect Results - Vitals Vitals: Vital Signs - 24 hr 11/09/21 11/09/21 11/09/21 08:39 11:48 13:45 Temperature 37 C 37.3 C 36.6 C Heart Rate 85 93 88 Respiratory 16 20 24 Rate Blood Pressure 140/66 H 110/80 123/69 O2 Saturation 99 94 95 Oxygen O2 Source Room air - Labs Labs: Laboratory Tests 11/09/21 11/09/21 11/09/21 09:00 09:00 13:37 WBC 16.0 H RBC 4.91 Hgb 14.6 Hct 44.4 MCV 90.4 MCH 29.7 MCHC 32.9 RDW 13.1 Plt Count 265 MPV 10.4 Neut # (Auto) 13.7 H Lymph # (Auto) 0.7 L [place] # (Auto) 1.2 H Eos # (Auto) 0.1 Baso # (Auto) 0.1 Absolute Nucleated RBC 0.00 Nucleated RBC % 0.0 Sodium 140 Potassium 3.9 Chloride 101 Carbon Dioxide 25 Anion Gap 14.0 H BUN 22 H Creatinine 0.8 Estimated GFR (MDRD) 68 L Glucose 130 H Calcium 9.6 Total Bilirubin 0.9 AST 318 H ALT 344 H Alkaline Phosphatase 68 Total Creatine Kinase 1005 H* Total Protein 7.1 Albumin 4.4 Globulin 2.7 Albumin/Globulin Ratio 1.6 Lipase 28 Urine Color DARK YELLOW Urine Clarity CLEAR Urine pH 6.0 Ur Specific [place] >=1.030 H Urine Protein NEGATIVE Urine Glucose (UA) NEGATIVE Urine Ketones 15 H Urine Occult Blood NEGATIVE Urine Nitrite NEGATIVE Urine Bilirubin NEGATIVE Urine Urobilinogen 0.2 (NORMAL) Ur Leukocyte Esterase SMALL H Urine RBC 0-5 Urine WBC 6-10 H Ur Squamous Epith Cells FEW Squamous Urine Bacteria Few Urine Mucus Moderate Strands Ur Microscopic Review INDICATED Urine Culture Comments INDICATED PD MEDICAL DECISION MAKING - ED course Complexity details: reviewed results, re-evaluated patient, considered differential, d/w patient ED course: Patient fell approximately 2 days ago, and has been on the floor for 2 days. Surprisingly she only has minor rug rodriguez to the elbow. She does have a UTI and we will place on antibiotics for this. She was given IV fluids. Mild CK elevation, but normal creatinine. She urinated twice in the emergency department. Eating and drinking without difficulty. Ambulating well with a walker. Has a friend to stay with her. She does not want to stay in the hospital. She will follow-up with her doctor to get her labs rechecked. Patient has no apparent injuries. She will follow-up with [employer] for a life alert button. Patient counseled regarding signs and symptoms for which I believe and urgent re-evaluation would be necessary. Patient with good understanding of and agreement to plan and is comfortable going home at this time This document was made in part using voice recognition software. While efforts are made to proofread this document, sound alike and grammatical errors may occur. Departure - Departure Disposition: 01 Home, Self Care Clinical Impression: Dehydration, Fall from ground level UTI (urinary tract infection) Qualifiers: Urinary tract infection type: acute cystitis Hematuria presence: without hematuria Qualified Code(s): N30.00 - Acute cystitis without hematuria Condition: Good Instructions: ED Dehydration, ED UTI Cystitis Female Follow-Up: MATTHIAS COKER MD [Primary Care Provider] - Within 3 Days Prescriptions: Cefpodoxime Proxetil [Vantin] 100 mg PO Q12H #14 tablet Comments: Take all antibiotics until gone. Return if you worsen. Drink plenty of fluids. It is also recommended that you contact [employer] to obtain a life alert. You should have your blood work rechecked with your doctor later this week to include a CBC, BMP and CK. Your prescriptions were sent to [facility] in [facility] contact information: [phone] | [phone]"
[2021-11-09 17:31] VITALS: BP 126/99
== END 2021-11-09 17:30 | disposition home or self-care (01) ==
LOC: EDUNIT# → ED 08:33
DX: E86.0 Dehydration (principal); N30.00 Acute cystitis without hematuria; W18.30XA Fall on same level, unspecified, initial encounter
CPT/HCPCS: 36415; 80053; 81001; 82550; 83690; 85025; 87086; 96361; 96374; 99283; 99284; A6250; 81003

== ENCOUNTER → 2021-11-09 | Outpatient (CLI) | payer MEDICARE, OTHER | END | disposition critical access hospital (66) | LOC: EMS 08:16 | DX: S50.312A Abrasion of left elbow, initial encounter (principal); S50.311A Abrasion of right elbow, initial encounter; M79.18 Myalgia, other site; E86.0 Dehydration; W18.30XA Fall on same level, unspecified, initial encounter; Y92.039 Unspecified place in apartment as the place of occurrence of the external cause | CPT/HCPCS: A0425; A0427 ==

== ENCOUNTER 2021-11-10 15:05 | Emergency (ER) | payer MEDICARE, OTHER ==
[2021-11-10 15:21] VITALS: BP 111/76
--- NOTE | 2021-11-10 16:32 | ED Physician Documentation ---
History of Present Illness - Stated complaint Stated Complaint: BACK PX & SORES - Chief complaint Chief Complaint: General - History obtained from History obtained from: Patient, Family - Additonal information Additional information: The patient comes to the emergency department chief complaint of raw sores on buttocks. She was seen here yesterday after sustaining a ground-level fall at home and being stuck on the floor for 2 days. The patient was fully worked up yesterday and ultimately, sent home. The patient has been able to get around, though she is sore, but was unaware of the macerated skin on her buttocks until her a friend noticed it today. Patient states that her friend noticed because it was weeping through the patient's pants and her pants were stuck to her buttocks. They want to know if the patient has an infection. The patient otherwise has no new complaints. She has abrasions on her left elbow, left knee and right ankle. No other complaints at this time. Review of Systems Ten Systems: 10 systems reviewed and negative Constitutional: reports: Reviewed and negative Eyes: reports: Reviewed and negative Ears: reports: Reviewed and negative Nose: reports: Reviewed and negative Throat: reports: Reviewed and negative Cardiac: reports: Reviewed and negative Respiratory: reports: Reviewed and negative GI: reports: Reviewed and negative : reports: Reviewed and negative Skin: reports: Abrasion (s) Musculoskeletal: reports: Reviewed and negative Neurologic: reports: Reviewed and negative Psychiatric: reports: Reviewed and negative Endocrine: reports: Reviewed and negative Immunocompromised: reports: Reviewed and negative PD PAST MEDICAL HISTORY - Past Medical History Cardiovascular: High cholesterol Respiratory: None Endocrine/Autoimmune: None Psych: Bipolar disorder Musculoskeletal: Osteoarthritis, Osteoporosis, Chronic back pain - Past Surgical History Ortho: Hip replacement, 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 replacement /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 - Present Medications Home Medications: Ambulatory Orders Medication Instructions Recorded Confirmed Albuterol Sulf [Ventolin Hfa 11/09/21 Inhaler] Aspirin [[place] Aspirin] 81 mg PO DAILY 11/09/21 11/09/21 Cefpodoxime Proxetil [Vantin] 100 mg PO Q12H #14 tablet 11/09/21 LORazepam [Ativan] 1 mg PO PRN 11/09/21 OLANZapine [Zyprexa] 2.5 11/09/21 Omeprazole Magnesium [Prilosec] 40 11/09/21 Sertraline [Zoloft] 100 mg PO HS 11/09/21 11/09/21 Simvastatin [Zocor] 40 mg PO HS 11/09/21 11/09/21 Tolterodine Tartrate [Detrol] 4 mg PO DAILY 11/09/21 11/09/21 Min Oil/Dimeth/Coconut Oil Crm 92 applic TOP DAILY PRN #92 gm 11/10/21 [Cavilon] - Allergies Allergies/Adverse Reactions: Allergies Allergy/AdvReac Type Severity Reaction Status Date / Time Sulfa (Sulfonamide Allergy Rash Verified 11/10/21 15:16 Antibiotics) - Social History Does the pt smoke?: No Smoking Status: Never smoker PD ED PE NORMAL - Vitals Vital signs reviewed: Yes - General General: Alert and oriented X 3, No acute distress, Well developed/nourished - HEENT HEENT: Atraumatic, PERRL, EOMI, Moist mucous membranes - Neck Neck: Supple, no meningeal sign - Cardiac Cardiac: Strong equal pulses - Respiratory Respiratory: No respiratory distress - Derm Derm: Warm and dry, Other (Extensive areas of Macerated skin on bilateral buttocks with weeping. No purulent drainage. No induration or erythema beyond the borders of the macerated area. Well scabbed abrasion over right lateral malleolus. Subacute appearing abrasions over left knee and left elbow.) - Extremities Extremities: No deformity - Neuro Neuro: Alert and oriented X 3 - Psych Psych: Normal mood, Normal affect Results - Vitals Vitals: Vital Signs - 24 hr 11/10/21 15:16 Temperature 36.2 C L Heart Rate 90 Respiratory 20 Rate Blood Pressure 111/76 O2 Saturation 96 Oxygen O2 Source Room air PD MEDICAL DECISION MAKING - ED course Complexity details: considered differential, d/w patient ED course: The patient was able to transfer from her wheelchair and stand while I examined her buttocks. She actually appeared fairly well overall and I did not find any evidence of infection. I discussed this with the patient and her friend. We have dressed the patient's wounds with barrier cream and breathable dressings and I have instructed the patient and her friend that the cream will need to be reapplied each day. Departure - Departure Disposition: 01 Home, Self Care Clinical Impression: Maceration of skin Condition: Stable Instructions: ED Rash Diaper No Infec Inf Td Prescriptions: Min Oil/Dimeth/Coconut Oil Crm [Cavilon] 92 applic TOP DAILY PRN #92 gm PRN Reason: rash Comments: A barrier cream has been placed on the macerated skin of your buttocks. This should be reapplied every day and covered with a breathable dressing, such as gauze. This rash is very similar to a diaper rash where skin breaks down and the barrier cream will help to protect against any friction. Because we do not have instructions for adults on this kind of rash, you have been given the diaper rash instructions, As they are applicable to your rash as well. Please quill picking machine operator the rest of your barrier cream at the pharmacy. You may also use A&E ointment or Desitin diaper cream if you wish.
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
[2021-11-10] MEDS ORDERED: MIN OIL/DIMETHICON/COCONUT OIL 92 GM TUBE TOP STA (17:01)
== END 2021-11-10 17:40 | disposition home or self-care (01) ==
LOC: ED 15:05
DX: L98.9 Disorder of the skin and subcutaneous tissue, unspecified (principal)
CPT/HCPCS: 99282; A6250

== ENCOUNTER 2022-09-18 07:35 | Outpatient (CLI) | payer MEDICARE, OTHER | END 2022-09-18 23:59 | disposition EMS.NT | LOC: EMS 07:35 | DX: Z03.89 Encounter for observation for other suspected diseases and conditions ruled out (principal) ==

== ENCOUNTER 2023-01-28 20:14 | Outpatient (CLI) | payer MEDICARE, OTHER | END 2023-01-28 23:59 | disposition EMS.NT | LOC: EMS 20:14 | DX: Z03.89 Encounter for observation for other suspected diseases and conditions ruled out (principal) ==

== ENCOUNTER 2023-03-24 07:24 | Outpatient (CLI) | payer MEDICARE, OTHER | END 2023-03-24 23:59 | disposition left against medical advice (07) | LOC: EMS 07:24 | DX: R07.9 Chest pain, unspecified (principal); F41.9 Anxiety disorder, unspecified ==